=== PATIENT | male | born 1955 | race Caucasian/White ===

== ENCOUNTER 2020-11-12 17:47 | Observation (INO) | payer MEDICARE, BC ==
[2020-11-12] MEDS ORDERED: Zofran 4 MG/2 ML VIAL IV ONE (18:11)
[2020-11-12] MEDS ORDERED: Sodium Chloride 0.9% 1000 ML 1,000 ML IV STA (18:11)
[2020-11-12] MEDS ORDERED: MORPHINE SULFATE 4 MG INJ IV ONE (18:11)
--- NOTE | 2020-11-12 18:17 | ERPHSYRPT ---
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 rates 8/10 pain now that increases with deep breaths. noted bruising where pain located and is tender to palp. denies SOB, diff breathing, or CP. Timing/Duration: hour(s) (0.5), constant, sudden Activities at Onset: other Quality: sharpness Abdominal Pain Onset Location: LUQ Pain Radiation: other Severity of Pain-Max: moderate Severity of Pain-Current: moderate Modifying Factors: Improves With: rest. Worsens With: breathing, coughing, movement, palpation, position Associated Symptoms: denies symptoms Hx Tetanus, Diphtheria Vaccination/Date Given: Yes Hx Influenza Vaccination/Date Given: Yes Hx Pneumococcal Vaccination/Date Given: Yes Immunizations Up to Date: Yes <BRISSA SENA - Last Filed: 11/12/20 18:13> <LIO MAZARIEGOS - Last Filed: 11/12/20 21:47> - History of Present Illness Time Seen by Provider: 11/12/20 17:48 Physician History: 65Years old with a history of Parkinson's disease presented in the ER with chief complaint of fall with hitting stump of for tree left upper abdomen/lower chest almost half an hour prior to arrival. Did not hit his head, no loss of consciousness. He is complaining of moderate to severe sharp pain in the lower chest/upper abdomen, aggravated with palpation movements, deep breathing and partial relief with being still. Denies any associated nausea vomiting or difficulty breathing. No injury anywhere else. (BRISSA SENA) Allergies/Adverse Reactions: codeine Allergy (Verified 11/12/20 18:04) Nausea and Vomiting ropinirole [From Requip] Allergy (Verified 11/12/20 18:04) Nausea and Vomiting Home Medications: Amantadine HCl [Gocovri] 2 cap PO HS 11/12/20 [History] Bromocriptine Mesylate [Parlodel] 4 tab PO TID 11/12/20 [History] Carbidopa/Levodopa [Carbidopa-Levo 25-100 Tab] 2 tab PO QID 11/12/20 [History] Cholecalciferol (Vitamin D3) [Vitamin D3] 5,000 unit PO DAILY 11/12/20 [History] Diazepam 5 mg [Valium 5 MG] 2 tab PO HS 11/12/20 [History] Docusate Sodium [Stool Softener] 50 mg PO BID 11/12/20 [History] Ginkgo Biloba 60 mg PO BID 11/12/20 [History] Istradefylline [Nourianz] 20 mg PO DAILY 11/12/20 [History] [place]-3S/Dha/Epa/Fish Oil/D3 [Fish Oil Gummies] 1 each PO HS 11/12/20 [History] Omeprazole 40 mg PO DAILY 11/12/20 [History] Rasagiline Mesylate 0.5 mg PO DAILY 11/12/20 [History] [place] Fruit/Zinc Picoli [Saw [place] Capsule] 1 each PO BID 11/12/20 [History] Tyrosine [l-Tyrosine] 500 mg PO DAILY 11/12/20 [History] Travel Risk - International Travel Have you traveled outside of the country in past 3 weeks: No - Coronavirus Screening Are you exhibiting any of the following symptoms?: No Close contact with a COVID-19 positive Pt in past 14-21 Days: No - Vaccine Status Have you recieved a Covid-19 vaccination: Yes Continuity Director: Moderna - Vaccination Dates Date of 2cond Vaccination (if applicable): unknown <BRISSA SENA - Last Filed: 11/12/20 18:13> - Review of Systems Constitutional: No Symptoms Eyes: No Symptoms Ears, Nose, & Throat: No Symptoms Respiratory: No Symptoms Cardiac: Chest Pain Abdominal/Gastrointestinal: Abdominal Pain Genitourinary Symptoms: No Symptoms Musculoskeletal: No Symptoms Skin: No Symptoms Neurological: No Symptoms Psychological: No Symptoms Endocrine: No Symptoms Hematologic/Lymphatic: No Symptoms Immunological/Allergic: No Symptoms <BRISSA SENA - Last Filed: 11/12/20 18:13> - Past Medical History Pertinent Past Medical History: Yes Neurological History: Other Respiratory History: Asthma, Pneumonia GI Medical History: GERD Male Reproductive Disorders: Prostate Problems Other Medical History: Parkinsons, R foot drop, skin cacncers removed, bone spurs in neck - Past Surgical History Past Surgical History: Yes Musculoskeletal: Orthopedic Surgery Male Surgical History: Prostate Surgery, Other Other Surgical History: 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, urolift (7 ami remain) - Social History Smoking Status: Never smoker Exposure to second hand smoke: No Drug Use: none Patient Lives Alone: No <DUNIA SENAMIR - Last Filed: 11/12/20 18:13> - Physical Exam General Appearance: no apparent distress, alert Eye Exam: PERRL/EOMI, eyes nml inspection Ears, Nose, Throat Exam: normal ENT inspection, TMs normal, pharynx normal Neck Exam: normal inspection, non-tender, supple, full range of motion Respiratory Exam: normal breath sounds, chest tenderness (Lower anterior chest wall bruising with tenderness), lungs clear Cardiovascular Exam: regular rate/rhythm, normal heart sounds Gastrointestinal/Abdomen Exam: soft, normal bowel sounds, tenderness (Left upper quadrant), guarding Back Exam: normal inspection, normal range of motion, No CVA tenderness Extremity Exam: normal inspection, normal range of motion Neurologic Exam: alert, oriented x 3, cooperative, 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 No acute traumatic injury. 2. Enlargement of the prostate with radiopaque seeds in the prostate. Mild prominence of the seminal vesicles. 3. 8 x 12 mm proximal right iliac lymph node.) <LIO MAZARIEGOS - Last Filed: 11/12/20 21:47> Ordered Tests: Active Orders 24 hr Category Date Time Status IV Insertion STAT Care 11/12/20 18:11 Active NPO (ED) STAT Care 11/12/20 18:11 Active ABDOMEN AND PELVIS W CONTRAST [CT] Stat Exams 11/12/20 18:12 Taken CHEST WITH CONTRAST [CT] Stat Exams 11/12/20 18:13 Taken CBC W DIFF Stat Lab 11/12/20 18:10 Completed CMP Stat Lab 11/12/20 18:10 Completed LIPASE Stat Lab 11/12/20 18:10 Completed TROPONIN Q3H Lab 11/12/20 18:10 Completed TROPONIN Q3H Lab 11/12/20 21:33 Received TROPONIN Q3H Lab 11/13/20 00:15 Ordered TROPONIN Q3H Lab 11/13/20 03:15 Ordered TROPONIN Q3H Lab 11/13/20 06:15 Ordered UA W/RFX UR CULTURE Stat Lab 11/12/20 19:57 Completed Medication Summary Discontinued Medications Generic Name Dose Route Start Last Admin Trade Name Freq PRN Reason Stop Dose Admin Sodium Chloride 1,000 mls @ 999 mls/hr 11/12/20 18:11 11/12/20 19:27 Sodium Chloride 0.9% 1000 Ml IV 11/12/20 19:11 Infused .Q1H1M STA Infusion Sodium Chloride Confirm 11/12/20 18:24 Sodium Chloride 0.9% 1000 Ml Administered 11/12/20 18:25 Dose 1,000 mls @ ud .ROUTE .STK-MED ONE Ketorolac Tromethamine 15 mg 11/12/20 20:49 11/12/20 21:09 Toradol 30 Mg Injection IV 11/12/20 20:50 15 mg STAT ONE Administration Ketorolac Tromethamine Confirm 11/12/20 21:08 Toradol 30 Mg Injection Administered 11/12/20 21:09 Dose 30 mg .ROUTE .STK-MED ONE Morphine Sulfate 4 mg 11/12/20 18:11 11/12/20 18:26 Morphine Sulfate 4 Mg Inj IV 11/12/20 18:12 4 mg STAT ONE Administration Morphine Sulfate Confirm 11/12/20 18:24 Morphine Sulfate 4 Mg Inj Administered 11/12/20 18:25 Dose 4 mg .ROUTE .STK-MED ONE Ondansetron HCl 4 mg 11/12/20 18:11 11/12/20 18:26 Zofran 4 Mg/2 Ml Vial IV 11/12/20 18:12 4 mg STAT ONE Administration Ondansetron HCl Confirm 11/12/20 18:23 Zofran 4 Mg/2 Ml Vial Administered 11/12/20 18:24 Dose 4 mg .ROUTE .STK-MED ONE Lab/Rad Data: Laboratory Result Diagrams 11/12/20 18:10 11/12/20 18:10 Laboratory Results 11/12/20 11/12/20 11/12/20 Range/Units 19:57 18:10 18:10 WBC (4.0-10.5) K/mm3 RBC (4.1-5.6) M/mm3 Hgb (12.5-18.0) gm/dl Hct (42-50) % MCV (78-100) fl MCH (26-32) pg MCHC (32-36) g/dl RDW (11.5-14.0) % Plt Count (150-450) K/mm3 MPV (7.5-11.0) fl Gran % (36.0-66.0) % Eos # (Auto) (0-0.5) Absolute Lymphs (auto) (1.0-4.6) Absolute Monos (auto) (0.0-1.3) Lymphocytes % (24.0-44.0) % Monocytes % (0.0-12.0) % Eosinophils % (0.00-5.0) % Basophils % (0.0-0.4) % Absolute Granulocytes (1.4-6.9) Basophils # (0-0.4) Sodium 139 (137-145) mmol/L Potassium 3.9 (3.5-5.1) mmol/L Chloride 104 (98-107) mmol/L Carbon Dioxide 31 H (22-30) mmol/L Anion Gap 8.3 (5-15) MEQ/L BUN 17 (9-20) mg/dL Creatinine 0.94 (0.66-1.25) mg/dL Estimated GFR > 60.0 ML/MIN Glucose 87 (74-106) mg/dL Calcium 9.1 (8.4-10.2) mg/dL Total Bilirubin 0.70 (0.2-1.3) mg/dL AST 26 (17-59) U/L ALT 7 (0-50) U/L Alkaline Phosphatase 83 (38-126) U/L Troponin I < 0.012 (0.000-0.034) ng/mL Serum Total Protein 6.5 (6.3-8.2) g/dL Albumin 4.2 (3.5-5.0) g/dL Lipase 100 (23-300) U/L Urine Color YELLOW (YELLOW) Urine Appearance CLEAR (CLEAR) Urine pH 6.0 (5-6) Ur Specific [place] >1.060 (1.005-1.025) Urine Protein NEGATIVE (Negative) Urine Ketones SMALL (NEGATIVE) Urine Blood NEGATIVE (0-5) Randy/ul Urine Nitrite NEGATIVE (NEGATIVE) Urine Bilirubin NEGATIVE (NEGATIVE) Urine Urobilinogen NEGATIVE (0-1) mg/dL Ur Leukocyte Esterase NEGATIVE (NEGATIVE) Urine WBC (Auto) 3-5 (0-5) /HPF Urine RBC (Auto) NONE (0-2) /HPF U Epithel Cells (Auto) NONE (FEW) /HPF Urine Bacteria (Auto) NONE (NEGATIVE) /HPF Urine Mucus (Auto) SLIGHT (NEGATIVE) /HPF Urine Culture Reflexed NO (NO) Urine Glucose NEGATIVE (NEGATIVE) mg/dL 11/12/20 Range/Units 18:10 WBC 7.9 (4.0-10.5) K/mm3 RBC 4.80 (4.1-5.6) M/mm3 Hgb 14.2 (12.5-18.0) gm/dl Hct 44.1 (42-50) % MCV 91.9 (78-100) fl MCH 29.6 (26-32) pg MCHC 32.2 (32-36) g/dl RDW 13.6 (11.5-14.0) % Plt Count 259 (150-450) K/mm3 MPV 9.2 (7.5-11.0) fl Gran % 67.6 H (36.0-66.0) % Eos # (Auto) 0.12 (0-0.5) Absolute Lymphs (auto) 1.89 (1.0-4.6) Absolute Monos (auto) 0.52 (0.0-1.3) Lymphocytes % 24.0 (24.0-44.0) % Monocytes % 6.6 (0.0-12.0) % Eosinophils % 1.5 (0.00-5.0) % Basophils % 0.3 (0.0-0.4) % Absolute Granulocytes 5.32 (1.4-6.9) Basophils # 0.02 (0-0.4) Sodium (137-145) mmol/L Potassium (3.5-5.1) mmol/L Chloride (98-107) mmol/L Carbon Dioxide (22-30) mmol/L Anion Gap (5-15) MEQ/L BUN (9-20) mg/dL Creatinine (0.66-1.25) mg/dL Estimated GFR ML/MIN Glucose (74-106) mg/dL Calcium (8.4-10.2) mg/dL Total Bilirubin (0.2-1.3) mg/dL AST (17-59) U/L ALT (0-50) U/L Alkaline Phosphatase (38-126) U/L Troponin I (0.000-0.034) ng/mL Serum Total Protein (6.3-8.2) g/dL Albumin (3.5-5.0) g/dL Lipase (23-300) U/L Urine Color (YELLOW) Urine Appearance (CLEAR) Urine pH (5-6) Ur Specific [place] (1.005-1.025) Urine Protein (Negative) Urine Ketones (NEGATIVE) Urine Blood (0-5) Randy/ul Urine Nitrite (NEGATIVE) Urine Bilirubin (NEGATIVE) Urine Urobilinogen (0-1) mg/dL Ur Leukocyte Esterase (NEGATIVE) Urine WBC (Auto) (0-5) /HPF Urine RBC (Auto) (0-2) /HPF U Epithel Cells (Auto) (FEW) /HPF Urine Bacteria (Auto) (NEGATIVE) /HPF Urine Mucus (Auto) (NEGATIVE) /HPF Urine Culture Reflexed (NO) Urine Glucose (NEGATIVE) mg/dL <BRISSA SENA - Last Filed: 11/12/20 18:13> - Progress Progress: unchanged Discussed with : Mallika (observation(2139)) Counseled pt/family regarding: lab results, rad results <LIO MAZARIEGOS - Last Filed: 11/12/20 21:47> - Progress Progress Note: 11/12/20 18:56 He is given pain medication for symptomatic relief. CT chest abdomen pelvis would be obtained. Care is transferred to Dr. Mazariegos at shift change for reevaluation and management per CT results. (BRISSA SENA) Pt examined by Dr. Mazariegos @ 2034: pharynx pink, lungs clear, mild tenderness over the lower left anteriolateral ribs with some bruising, mild LUQ abdominal tenderness, B.S. normal, alert & cooperative. (LIO MAZARIEGOS) <BRISSA SENA - Last Filed: 11/12/20 18:13> - Departure Departure Disposition: Observation Critical Care Time: No <LIO MAZARIEGOS - Last Filed: 11/12/20 21:47> - Departure Clinical Impression: chest pain, Fall, Parkinson disease, abdominal pain, GERD (gastroesophageal reflux disease) Condition: Stable Referrals: ELIAZAR TRACEY DO [Primary Care Provider] -
[2020-11-12] MEDS ORDERED: Zofran 4 MG/2 ML VIAL ONE (18:23)
[2020-11-12] MEDS ORDERED: Sodium Chloride 0.9% 1000 ML 1,000 ML ONE (18:24)
[2020-11-12] MEDS ORDERED: MORPHINE SULFATE 4 MG INJ ONE (18:24)
[2020-11-12 18:34] LABS: Absolute Neutrophil Ct (ANC) 5.32 (1.4-6.9); BASOPHIL % 0.3 % (0.0-0.4); Basophil (Absolute #) 0.02 (0-0.4); Eosinophil % 1.5 % (0.00-5.0); Eosinophil (Absolute #) 0.12 (0-0.5); Hematocrit 44.1 % (42-50); Hemoglobin 14.2 gm/dl (12.5-18.0); Lymphocyte (Absolute #) 1.89 (1.0-4.6); Mean Cell Volume 91.9 fl (78-100); Mean Corpuscular Hemoglobin 29.6 pg (26-32); Mean Corpuscular Hgb Concent. 32.2 g/dl (32-36); Mean Platelet Volume 9.2 fl (7.5-11.0); Monocyte (Absolute #) 0.52 (0.0-1.3); Monocytes % 6.6 % (0.0-12.0); Neutrophil % 67.6 % (36.0-66.0); Platelet Count 259 K/mm3 (150-450); Red Cell Distribution Width 13.6 % (11.5-14.0); White Blood Count 7.9 K/mm3 (4.0-10.5)
[2020-11-12 18:48] LABS: ALBUMIN 4.2 g/dL (3.5-5.0); ALKALINE PHOSPHATASE 83 U/L (38-126); ANION GAP 8.3 MEQ/L (5-15); BLOOD UREA NITROGEN 17 mg/dL (9-20); CHLORIDE 104 mmol/L (98-107); Calcium 9.1 mg/dL (8.4-10.2); Carbon Dioxide 31 mmol/L (22-30); Creatinine 1 0.94 mg/dL (0.66-1.25); EST GLOMERULAR FILTRATION RATE > 60.0 ML/MIN; Glucose 87 mg/dL (74-106); LIPASE 100 U/L (23-300); Potassium 3.9 mmol/L (3.5-5.1); SGOT/AST 26 U/L (17-59); SGPT/ALT 7 U/L (0-50); SODIUM 139 mmol/L (137-145); Total Protein 6.5 g/dL (6.3-8.2)
[2020-11-12 20:19] LABS: Appearance CLEAR (CLEAR); Bilirubin NEGATIVE (NEGATIVE); Blood NEGATIVE Ery/ul (0-5); Glucose NEGATIVE (NEGATIVE); Ketones SMALL (NEGATIVE); Leukocyte Esterase NEGATIVE (NEGATIVE); Mucus SLIGHT /HPF (NEGATIVE); Nitrite NEGATIVE (NEGATIVE); Protein,Urine Dip NEGATIVE (Negative); Specific Gravity >1.060 (1.005-1.025); Urobilinogen NEGATIVE mg/dL (0-1)
[2020-11-12] MEDS ORDERED: TORAdol 30 mg Injection IV ONE (20:49)
[2020-11-12] MEDS ORDERED: TORAdol 30 mg Injection ONE (21:08)
[2020-11-12] MEDS ORDERED: Zofran 4 MG/2 ML VIAL IV PRN (21:47)
[2020-11-12] MEDS ORDERED: TYLENOL 325 MG PO PRN (21:47)
[2020-11-12] MEDS: Sodium Chloride 0.9% 1000 ML 1,000 ML IV SCH (22:20)
[2020-11-12 22:55] LABS: INFLUENZA A NEGATIVE (NEGATIVE); INFLUENZA B NEGATIVE (NEGATIVE); RESPIRATORY SYNCTIAL VIRUS NEGATIVE (Negative)
[2020-11-13] MEDS: TORAdol 30 mg Injection IV PRN ×3 (03:29→15:11)
[2020-11-13 07:37] LABS: Absolute Neutrophil Ct (ANC) 5.01 (1.4-6.9); BASOPHIL % 0.1 % (0.0-0.4); Basophil (Absolute #) 0.01 (0-0.4); Eosinophil % 1.7 % (0.00-5.0); Eosinophil (Absolute #) 0.13 (0-0.5); Hematocrit 42.7 % (42-50); Hemoglobin 13.4 gm/dl (12.5-18.0); Lymphocyte (Absolute #) 2.13 (1.0-4.6); Lymphocytes % 27.3 % (24.0-44.0); Mean Corpuscular Hemoglobin 29.2 pg (26-32); Mean Corpuscular Hgb Concent. 31.4 g/dl (32-36); Mean Platelet Volume 9.3 fl (7.5-11.0); Monocyte (Absolute #) 0.53 (0.0-1.3); Monocytes % 6.8 % (0.0-12.0); Neutrophil % 64.1 % (36.0-66.0); Platelet Count 231 K/mm3 (150-450); Red Blood Count 4.59 M/mm3 (4.1-5.6); Red Cell Distribution Width 13.7 % (11.5-14.0); White Blood Count 7.8 K/mm3 (4.0-10.5)
[2020-11-13 07:38] VITALS: O2SAT 98
[2020-11-13 07:50] LABS: ALBUMIN 3.5 g/dL (3.5-5.0); ALKALINE PHOSPHATASE 79 U/L (38-126); ANION GAP 6.8 MEQ/L (5-15); BLOOD UREA NITROGEN 12 mg/dL (9-20); CHLORIDE 107 mmol/L (98-107); Calcium 8.4 mg/dL (8.4-10.2); Carbon Dioxide 29 mmol/L (22-30); Creatinine 1 0.87 mg/dL (0.66-1.25); EST GLOMERULAR FILTRATION RATE > 60.0 ML/MIN; Glucose 88 mg/dL (74-106); Potassium 3.9 mmol/L (3.5-5.1); SGOT/AST 22 U/L (17-59); SODIUM 139 mmol/L (137-145); Total Protein 5.7 g/dL (6.3-8.2)
[2020-11-13 07:54] LABS: SGPT/ALT 5 U/L (0-50)
[2020-11-13] MEDS: Sodium Chloride 0.9% 1000 ML 1,000 ML IV SCH (08:27)
--- NOTE | 2020-11-13 08:44 | XRAY ---
Indication: Left chest pain following fall. Multiple contiguous axial images obtained through the chest using 100 cc Isovue 370 contrast. Comparison: None Lungs demonstrates minimal bilateral dependent atelectasis. No suspicious pulmonary mass, infiltrate, effusion, or pneumothorax. Heart is not enlarged. Aorta normal in course and caliber. A few tiny left hilar calcified nodes. No pathologic mediastinal/hilar lymphadenopathy. Bony thorax intact with minimal degenerative changes throughout the spine and tiny multilevel Schmorl nodes. CT abdomen/pelvis reported separately. Impression: Chronic bony findings and old granulomatous disease. Remaining CT chest with contrast exam is negative. Comment: Preliminary interpretation was made by [facility]. No critical discrepancy.
--- NOTE | 2020-11-13 08:46 | XRAY ---
Indication: Left chest/abdomen pain following fall. Multiple contiguous axial images obtained through the abdomen and pelvis using 100 cc Isovue 370 contrast. Comparison: None CT chest reported separately. Noncontrasted stomach and bowel loops appear nonobstructed. Enlarged prostate with multiple radiation seeds. No free fluid/air. Incidental 1 cm right renal cyst and splenic calcified granulomas. Remaining liver, gallbladder, pancreas, spleen, adrenal glands, kidneys, ureters, bladder, and aorta are unremarkable. No pathologic retroperitoneal lymphadenopathy. Osseous structures intact with mild degenerative changes throughout the spine greatest at the lumbosacral junction. Impression: Impression: 1. Right renal cyst, enlarged prostate gland with radiation seeds, chronic bony findings, and old granulomatous disease. 2. Remaining CT abdomen/pelvis with contrast exam is negative. Comment: Preliminary interpretation was made by [facility]. No critical discrepancy.
[2020-11-13] MEDS ORDERED: MEDICATION INTERVENTION PO SCH ×4 (09:30)
[2020-11-13] MEDS: Sinemet 25/100 MG PO SCH ×2 (09:47→12:35)
[2020-11-13] MEDS ORDERED: BROMOCRIPTINE MESYLATE 10 MG PO SCH (10:00)
[2020-11-13] MEDS ORDERED: RASAGILINE MESYLATE 0.5 MG PO SCH (10:00)
[2020-11-13] MEDS ORDERED: NON-FORMULARY ITEM (Docusate Sodium [Stool Softener] 100 MG) PO SCH (10:00)
[2020-11-13] MEDS ORDERED: Colace 100 MG PO SCH (10:00)
[2020-11-13] MEDS ORDERED: NON-FORMULARY ITEM (Omeprazole [Omeprazole] 40 MG) PO SCH (10:00)
[2020-11-13] MEDS ORDERED: Protonix 40MG Tablet PO SCH (10:00)
[2020-11-13] MEDS ORDERED: ISTRADEFYLLINE 20 MG PO SCH (10:00)
[2020-11-13 12:27] VITALS: BP 130/62
--- NOTE | 2020-11-13 16:39 | PCM.DCORD ---
- Discharge Disposition: Home, Self-Care Condition: Stable Prescriptions: New Ketorolac Tromethamine [Toradol] 10 mg PO TID PRN #12 tablet Continue Cholecalciferol (Vitamin D3) [Vitamin D3] 5,000 unit PO DAILY Tyrosine [l-Tyrosine] 500 mg PO DAILY [place] Fruit/Zinc [place] [[place] 450 mg Capsule] 150 mg PO BID Ginkgo Biloba 60 mg PO BID Docusate Sodium [Stool Softener] 100 mg PO BID Diazepam 5 mg [Valium 5 MG] 10 mg PO HS Rasagiline Mesylate 0.5 mg PO DAILY Omeprazole 40 mg PO DAILY Amantadine HCl [Gocovri] 274 mg PO HS Bromocriptine Mesylate [Parlodel] 10 mg PO TID Istradefylline [Nourianz] 20 mg PO DAILY Carbidopa/Levodopa [Carbidopa-Levo 25-100 Tab] 2 tab PO QID [place]-3S/Dha/Epa/Fish Oil/D3 [Fish Oil Gummies] 1 each PO DAILY L.acidoph,Paracasei, B.lactis [Probiotic] 1 each PO DAILY Ubidecarenone [Co Q-10] 200 mg PO DAILY Turmeric 200 mg PO DAILY Cartilage/Collagen/Bor/Hyalur [Joint Health Tablet] 1 each PO DAILY Glucosamine Sulfate 1,000 mg PO DAILY Additional Instructions: outpatient PT Follow up with: ELIAZAR TRACEY DO [Primary Care Provider] -
[2020-11-13 16:42] VITALS: PULSE 56
--- NOTE | 2020-11-13 16:45 | PCM.SSS ---
History of Present Illness - Chief Complaint Chief Complaint: CHEST PAIN, ABDOMINAL PAIN, FALL, GERD, PARKINSON'S DISEASE History of Present Illness: is a 65 year old male with Parkinson's dz who was injured at home. [place] , grabbed [place] branch that broke and he fell onto a 10 inch log landing on his left upper abdomen and lower chest. He was in severe pain in this area and presented to ER. CT abd/pelvis and chest did not show any acute changes.He was admitted for observation and pain control. - Review of Systems Constitutional: No Symptoms Eyes: No Symptoms Ears, Nose, & Throat: No Symptoms Respiratory: No Symptoms Cardiac: No Symptoms Abdominal/Gastrointestinal: Abdominal Pain (LUQ), Other (GERD controlled on meds) Genitourinary Symptoms: Hesitancy Musculoskeletal: Fall, Injury (see HPI), Other (Parkinsons chronic episodic uncontrolled jerking of extremities) Neurological: Other (no headaches or focal neuro changes. ) Psychological: No Symptoms Endocrine: No Symptoms Medications & Allergies Home Medications: Home Medication List Amantadine HCl [Gocovri] 274 mg PO HS 11/12/20 [History Confirmed 11/13/20] Bromocriptine Mesylate [Parlodel] 10 mg PO TID 11/12/20 [History Confirmed 11/13/20] Carbidopa/Levodopa [Carbidopa-Levo 25-100 Tab] 2 tab PO QID 11/12/20 [History Confirmed 11/12/20] Cholecalciferol (Vitamin D3) [Vitamin D3] 5,000 unit PO DAILY 11/12/20 [History Confirmed 11/12/20] Diazepam 5 mg [Valium 5 MG] 10 mg PO HS 11/12/20 [History Confirmed 11/13/20] Docusate Sodium [Stool Softener] 100 mg PO BID 11/12/20 [History Confirmed 11/13/20] Ginkgo Biloba 60 mg PO BID 11/12/20 [History Confirmed 11/12/20] Istradefylline [Nourianz] 20 mg PO DAILY 11/12/20 [History Confirmed 11/12/20] [place]-3S/Dha/Epa/Fish Oil/D3 [Fish Oil Gummies] 1 each PO DAILY 11/12/20 [History Confirmed 11/13/20] Omeprazole 40 mg PO DAILY 11/12/20 [History Confirmed 11/12/20] Rasagiline Mesylate 0.5 mg PO DAILY 11/12/20 [History Confirmed 11/12/20] [place] Fruit/Zinc Picoli [Saw [place] 450 mg Capsule] 150 mg PO BID 11/12/20 [History Confirmed 11/13/20] Tyrosine [l-Tyrosine] 500 mg PO DAILY 11/12/20 [History Confirmed 11/12/20] Cartilage/Collagen/Bor/Hyalur [Joint Health Tablet] 1 each PO DAILY 11/13/20 [History Confirmed 11/13/20] Glucosamine Sulfate 1,000 mg PO DAILY 11/13/20 [History Confirmed 11/13/20] Ketorolac Tromethamine [Toradol] 10 mg PO TID PRN #12 tablet 11/13/20 [Rx] L.acidoph,Paracasei, B.lactis [Probiotic] 1 each PO DAILY 11/13/20 [History Confirmed 11/13/20] Turmeric 200 mg PO DAILY 11/13/20 [History Confirmed 11/13/20] Ubidecarenone [Co Q-10] 200 mg PO DAILY 11/13/20 [History Confirmed 11/13/20] Allergies/Adverse Reactions: Allergies Allergy/AdvReac Type Severity Reaction Status Date / Time codeine Allergy Nausea and Verified 11/13/20 00:27 Vomiting ropinirole [From Requip] Allergy Nausea and Verified 11/13/20 00:27 Vomiting - Past Medical History Past Medical History: Yes Neurological History: Other ENT History: No Pertinent History Cardiac History: No Pertinent History Respiratory History: Asthma, Pneumonia Endocrine Medical History: No Pertinent History Musculoskelatal History: No Pertinent History GI Medical History: GERD History: No Pertinent History Pyscho-Social History: No Pertinent History Male Reproductive Disorders: Prostate Problems Comment: Parkinsons, R foot drop, skin caNCcers removed, bone spurs in neck - Past Surgical History Past Surgical History: Yes Neuro Surgical History: No Pertinent History Cardiac History: No Pertinent History Respiratory Surgery: No Pertinent History GI Surgical History: No Pertinent History Genitourinary Surgical Hx: No Pertinent History Musculskeletal Surgical Hx: Orthopedic Surgery Male Surgical History: Prostate Surgery, Other Other Surgical History: 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, urolift (7 ami remain) - Social History Smoking Status: Never smoker Exposure to second hand smoke: No Alcohol: Occasionally Drug Use: none - Physical Exam Vital Signs: Vital Signs - 24 hr Temp Pulse Resp BP Pulse Ox 11/13/20 12:00 98.4 F 58 L 18 130/62 98 11/13/20 07:37 97.9 F 55 L 20 127/66 98 11/13/20 07:20 95 11/13/20 03:53 98.1 F 63 16 121/70 96 11/13/20 00:25 95 11/12/20 23:49 97.8 F 63 16 158/77 97 11/12/20 23:30 97.8 F 63 16 158/77 97 11/12/20 23:09 68 16 130/71 98 11/12/20 22:24 68 18 129/71 96 11/12/20 21:14 70 16 138/73 98 11/12/20 20:00 68 18 151/81 98 11/12/20 19:00 60 18 145/75 97 11/12/20 18:17 100 11/12/20 17:55 97.5 F 62 18 161/90 100 General Appearance: no apparent distress (seated ,just had Toradol IV) Neurologic Exam: alert, oriented x 3, cooperative, normal mood/affect, abnormal gait (parkinsons) Eye Exam: eyes nml inspection Ears, Nose, Throat Exam: normal ENT inspection, moist mucous membranes Neck Exam: normal inspection Respiratory Exam: normal breath sounds Cardiovascular Exam: regular rate/rhythm Gastrointestinal/Abdomen Exam: soft, normal bowel sounds, tenderness (LUQ) Rectal Exam: not done Back Exam: normal inspection (no CVA tenderness) Extremity Exam: normal inspection Skin Exam: normal color, warm, dry Results - Labs Lab/Micro Results: Lab Results-Last 24 Hours 11/12/20 11/12/20 11/12/20 Range/Units 18:10 18:10 18:10 WBC 7.9 (4.0-10.5) K/mm3 RBC 4.80 (4.1-5.6) M/mm3 Hgb 14.2 (12.5-18.0) gm/dl Hct 44.1 (42-50) % MCV 91.9 (78-100) fl MCH 29.6 (26-32) pg MCHC 32.2 (32-36) g/dl RDW 13.6 (11.5-14.0) % Plt Count 259 (150-450) K/mm3 MPV 9.2 (7.5-11.0) fl Gran % 67.6 H (36.0-66.0) % Eos # (Auto) 0.12 (0-0.5) Absolute Lymphs (auto) 1.89 (1.0-4.6) Absolute Monos (auto) 0.52 (0.0-1.3) Lymphocytes % 24.0 (24.0-44.0) % Monocytes % 6.6 (0.0-12.0) % Eosinophils % 1.5 (0.00-5.0) % Basophils % 0.3 (0.0-0.4) % Absolute Granulocytes 5.32 (1.4-6.9) Basophils # 0.02 (0-0.4) Sodium 139 (137-145) mmol/L Potassium 3.9 (3.5-5.1) mmol/L Chloride 104 (98-107) mmol/L Carbon Dioxide 31 H (22-30) mmol/L Anion Gap 8.3 (5-15) MEQ/L BUN 17 (9-20) mg/dL Creatinine 0.94 (0.66-1.25) mg/dL Estimated GFR > 60.0 ML/MIN Glucose 87 (74-106) mg/dL Calcium 9.1 (8.4-10.2) mg/dL Total Bilirubin 0.70 (0.2-1.3) mg/dL AST 26 (17-59) U/L ALT 7 (0-50) U/L Alkaline Phosphatase 83 (38-126) U/L Troponin I < 0.012 (0.000-0.034) ng/mL Serum Total Protein 6.5 (6.3-8.2) g/dL Albumin 4.2 (3.5-5.0) g/dL Lipase 100 (23-300) U/L Urine Color (YELLOW) Urine Appearance (CLEAR) Urine pH (5-6) Ur Specific Mico (1.005-1.025) Urine Protein (Negative) Urine Ketones (NEGATIVE) Urine Blood (0-5) Randy/ul Urine Nitrite (NEGATIVE) Urine Bilirubin (NEGATIVE) Urine Urobilinogen (0-1) mg/dL Ur Leukocyte Esterase (NEGATIVE) Urine WBC (Auto) (0-5) /HPF Urine RBC (Auto) (0-2) /HPF U Epithel Cells (Auto) (FEW) /HPF Urine Bacteria (Auto) (NEGATIVE) /HPF Urine Mucus (Auto) (NEGATIVE) /HPF Urine Culture Reflexed (NO) Urine Glucose (NEGATIVE) mg/dL Influenza Type A Ag (NEGATIVE) Influenza Type B Ag (NEGATIVE) RSV (PCR) (Negative) SARS-CoV-2 (PCR) (NEGATIVE) 11/12/20 11/12/20 11/12/20 Range/Units 19:57 21:33 22:02 WBC (4.0-10.5) K/mm3 RBC (4.1-5.6) M/mm3 Hgb (12.5-18.0) gm/dl Hct (42-50) % MCV (78-100) fl MCH (26-32) pg MCHC (32-36) g/dl RDW (11.5-14.0) % Plt Count (150-450) K/mm3 MPV (7.5-11.0) fl Gran % (36.0-66.0) % Eos # (Auto) (0-0.5) Absolute Lymphs (auto) (1.0-4.6) Absolute Monos (auto) (0.0-1.3) Lymphocytes % (24.0-44.0) % Monocytes % (0.0-12.0) % Eosinophils % (0.00-5.0) % Basophils % (0.0-0.4) % Absolute Granulocytes (1.4-6.9) Basophils # (0-0.4) Sodium (137-145) mmol/L Potassium (3.5-5.1) mmol/L Chloride (98-107) mmol/L Carbon Dioxide (22-30) mmol/L Anion Gap (5-15) MEQ/L BUN (9-20) mg/dL Creatinine (0.66-1.25) mg/dL Estimated GFR ML/MIN Glucose (74-106) mg/dL Calcium (8.4-10.2) mg/dL Total Bilirubin (0.2-1.3) mg/dL AST (17-59) U/L ALT (0-50) U/L Alkaline Phosphatase (38-126) U/L Troponin I < 0.012 (0.000-0.034) ng/mL Serum Total Protein (6.3-8.2) g/dL Albumin (3.5-5.0) g/dL Lipase (23-300) U/L Urine Color YELLOW (YELLOW) Urine Appearance CLEAR (CLEAR) Urine pH 6.0 (5-6) Ur Specific Mico >1.060 (1.005-1.025) Urine Protein NEGATIVE (Negative) Urine Ketones SMALL (NEGATIVE) Urine Blood NEGATIVE (0-5) Randy/ul Urine Nitrite NEGATIVE (NEGATIVE) Urine Bilirubin NEGATIVE (NEGATIVE) Urine Urobilinogen NEGATIVE (0-1) mg/dL Ur Leukocyte Esterase NEGATIVE (NEGATIVE) Urine WBC (Auto) 3-5 (0-5) /HPF Urine RBC (Auto) NONE (0-2) /HPF U Epithel Cells (Auto) NONE (FEW) /HPF Urine Bacteria (Auto) NONE (NEGATIVE) /HPF Urine Mucus (Auto) SLIGHT (NEGATIVE) /HPF Urine Culture Reflexed NO (NO) Urine Glucose NEGATIVE (NEGATIVE) mg/dL Influenza Type A Ag NEGATIVE (NEGATIVE) Influenza Type B Ag NEGATIVE (NEGATIVE) RSV (PCR) NEGATIVE (Negative) SARS-CoV-2 (PCR) NEGATIVE (NEGATIVE) 11/13/20 11/13/20 11/13/20 Range/Units 00:25 03:25 06:52 WBC (4.0-10.5) K/mm3 RBC (4.1-5.6) M/mm3 Hgb (12.5-18.0) gm/dl Hct (42-50) % MCV (78-100) fl MCH (26-32) pg MCHC (32-36) g/dl RDW (11.5-14.0) % Plt Count (150-450) K/mm3 MPV (7.5-11.0) fl Gran % (36.0-66.0) % Eos # (Auto) (0-0.5) Absolute Lymphs (auto) (1.0-4.6) Absolute Monos (auto) (0.0-1.3) Lymphocytes % (24.0-44.0) % Monocytes % (0.0-12.0) % Eosinophils % (0.00-5.0) % Basophils % (0.0-0.4) % Absolute Granulocytes (1.4-6.9) Basophils # (0-0.4) Sodium (137-145) mmol/L Potassium (3.5-5.1) mmol/L Chloride (98-107) mmol/L Carbon Dioxide (22-30) mmol/L Anion Gap (5-15) MEQ/L BUN (9-20) mg/dL Creatinine (0.66-1.25) mg/dL Estimated GFR ML/MIN Glucose (74-106) mg/dL Calcium (8.4-10.2) mg/dL Total Bilirubin (0.2-1.3) mg/dL AST (17-59) U/L ALT (0-50) U/L Alkaline Phosphatase (38-126) U/L Troponin I < 0.012 < 0.012 < 0.012 (0.000-0.034) ng/mL Serum Total Protein (6.3-8.2) g/dL Albumin (3.5-5.0) g/dL Lipase (23-300) U/L Urine Color (YELLOW) Urine Appearance (CLEAR) Urine pH (5-6) Ur Specific [place] (1.005-1.025) Urine Protein (Negative) Urine Ketones (NEGATIVE) Urine Blood (0-5) Randy/ul Urine Nitrite (NEGATIVE) Urine Bilirubin (NEGATIVE) Urine Urobilinogen (0-1) mg/dL Ur Leukocyte Esterase (NEGATIVE) Urine WBC (Auto) (0-5) /HPF Urine RBC (Auto) (0-2) /HPF U Epithel Cells (Auto) (FEW) /HPF Urine Bacteria (Auto) (NEGATIVE) /HPF Urine Mucus (Auto) (NEGATIVE) /HPF Urine Culture Reflexed (NO) Urine Glucose (NEGATIVE) mg/dL Influenza Type A Ag (NEGATIVE) Influenza Type B Ag (NEGATIVE) RSV (PCR) (Negative) SARS-CoV-2 (PCR) (NEGATIVE) 11/13/20 11/13/20 Range/Units 06:52 06:52 WBC 7.8 (4.0-10.5) K/mm3 RBC 4.59 (4.1-5.6) M/mm3 Hgb 13.4 (12.5-18.0) gm/dl Hct 42.7 (42-50) % MCV 93.0 (78-100) fl MCH 29.2 (26-32) pg MCHC 31.4 L (32-36) g/dl RDW 13.7 (11.5-14.0) % Plt Count 231 (150-450) K/mm3 MPV 9.3 (7.5-11.0) fl Gran % 64.1 (36.0-66.0) % Eos # (Auto) 0.13 (0-0.5) Absolute Lymphs (auto) 2.13 (1.0-4.6) Absolute Monos (auto) 0.53 (0.0-1.3) Lymphocytes % 27.3 (24.0-44.0) % Monocytes % 6.8 (0.0-12.0) % Eosinophils % 1.7 (0.00-5.0) % Basophils % 0.1 (0.0-0.4) % Absolute Granulocytes 5.01 (1.4-6.9) Basophils # 0.01 (0-0.4) Sodium 139 (137-145) mmol/L Potassium 3.9 (3.5-5.1) mmol/L Chloride 107 (98-107) mmol/L Carbon Dioxide 29 (22-30) mmol/L Anion Gap 6.8 (5-15) MEQ/L BUN 12 (9-20) mg/dL Creatinine 0.87 (0.66-1.25) mg/dL Estimated GFR > 60.0 ML/MIN Glucose 88 (74-106) mg/dL Calcium 8.4 (8.4-10.2) mg/dL Total Bilirubin 0.80 (0.2-1.3) mg/dL AST 22 (17-59) U/L ALT 5 (0-50) U/L Alkaline Phosphatase 79 (38-126) U/L Troponin I (0.000-0.034) ng/mL Serum Total Protein 5.7 L (6.3-8.2) g/dL Albumin 3.5 (3.5-5.0) g/dL Lipase (23-300) U/L Urine Color (YELLOW) Urine Appearance (CLEAR) Urine pH (5-6) Ur Specific [place] (1.005-1.025) Urine Protein (Negative) Urine Ketones (NEGATIVE) Urine Blood (0-5) Randy/ul Urine Nitrite (NEGATIVE) Urine Bilirubin (NEGATIVE) Urine Urobilinogen (0-1) mg/dL Ur Leukocyte Esterase (NEGATIVE) Urine WBC (Auto) (0-5) /HPF Urine RBC (Auto) (0-2) /HPF U Epithel Cells (Auto) (FEW) /HPF Urine Bacteria (Auto) (NEGATIVE) /HPF Urine Mucus (Auto) (NEGATIVE) /HPF Urine Culture Reflexed (NO) Urine Glucose (NEGATIVE) mg/dL Influenza Type A Ag (NEGATIVE) Influenza Type B Ag (NEGATIVE) RSV (PCR) (Negative) SARS-CoV-2 (PCR) (NEGATIVE) - Radiology Impressions Radiology Exams & Impressions: Radiology Procedures Category Date Time Status ABDOMEN AND PELVIS W CONTRAST [CT] Stat Exams 11/12/20 18:12 Completed CHEST WITH CONTRAST [CT] Stat Exams 11/12/20 18:13 Completed - Other Procedures and Tests Respiratory Therapy 11/14/20 05:00 EKG DAILY 11/15/20 05:00 EKG DAILY 11/16/20 05:00 EKG DAILY Assessment/Plan (1) Fall Status: Acute Assessment & Plan: slipped on the mud landed on a log hitting left upper abd and left lower chest.No acute changes on CT abd/pelvis/chest Code(s): W19.XXXA - UNSPECIFIED FALL, INITIAL ENCOUNTER (2) Contusion Status: Acute Qualifiers: Contusion area: abdominal wall Assessment & Plan: LUQ left lower ant ribs. Pain controlled with Toradol Code(s): T14.8XXA - OTHER INJURY OF UNSPECIFIED BODY REGION, INITIAL ENCOUNTER (3) Parkinson disease Status: Chronic Assessment & Plan: Neurology follows,meds help but still has episodic jerking motions extremities. Code(s): G20 - PARKINSON'S DISEASE [facility] Summary - Vitals & Intake/Output Vital Signs: Vital Signs Temperature 98.4 F 11/13/20 12:00 Pulse Rate 58 L 11/13/20 12:00 Respiratory Rate 18 11/13/20 12:00 Blood Pressure 130/62 11/13/20 12:00 O2 Sat by Pulse Oximetry 98 11/13/20 12:00 Intake & Output: Intake & Output 11/11/20 11/12/20 11/13/20 11/14/20 11:59 11:59 11:59 11:59 Intake Total 822 240 Output Total 200 Balance 622 240 Weight 85.8 kg - Lab Result Diagrams: 11/13/20 06:52 11/13/20 06:52 Lab Results-Last 24 Hrs: Lab Results-Last 24 Hours 11/12/20 11/12/20 11/12/20 Range/Units 18:10 18:10 18:10 WBC 7.9 (4.0-10.5) K/mm3 RBC 4.80 (4.1-5.6) M/mm3 Hgb 14.2 (12.5-18.0) gm/dl Hct 44.1 (42-50) % MCV 91.9 (78-100) fl MCH 29.6 (26-32) pg MCHC 32.2 (32-36) g/dl RDW 13.6 (11.5-14.0) % Plt Count 259 (150-450) K/mm3 MPV 9.2 (7.5-11.0) fl Gran % 67.6 H (36.0-66.0) % Eos # (Auto) 0.12 (0-0.5) Absolute Lymphs (auto) 1.89 (1.0-4.6) Absolute Monos (auto) 0.52 (0.0-1.3) Lymphocytes % 24.0 (24.0-44.0) % Monocytes % 6.6 (0.0-12.0) % Eosinophils % 1.5 (0.00-5.0) % Basophils % 0.3 (0.0-0.4) % Absolute Granulocytes 5.32 (1.4-6.9) Basophils # 0.02 (0-0.4) Sodium 139 (137-145) mmol/L Potassium 3.9 (3.5-5.1) mmol/L Chloride 104 (98-107) mmol/L Carbon Dioxide 31 H (22-30) mmol/L Anion Gap 8.3 (5-15) MEQ/L BUN 17 (9-20) mg/dL Creatinine 0.94 (0.66-1.25) mg/dL Estimated GFR > 60.0 ML/MIN Glucose 87 (74-106) mg/dL Calcium 9.1 (8.4-10.2) mg/dL Total Bilirubin 0.70 (0.2-1.3) mg/dL AST 26 (17-59) U/L ALT 7 (0-50) U/L Alkaline Phosphatase 83 (38-126) U/L Troponin I < 0.012 (0.000-0.034) ng/mL Serum Total Protein 6.5 (6.3-8.2) g/dL Albumin 4.2 (3.5-5.0) g/dL Lipase 100 (23-300) U/L Urine Color (YELLOW) Urine Appearance (CLEAR) Urine pH (5-6) Ur Specific Mico (1.005-1.025) Urine Protein (Negative) Urine Ketones (NEGATIVE) Urine Blood (0-5) Randy/ul Urine Nitrite (NEGATIVE) Urine Bilirubin (NEGATIVE) Urine Urobilinogen (0-1) mg/dL Ur Leukocyte Esterase (NEGATIVE) Urine WBC (Auto) (0-5) /HPF Urine RBC (Auto) (0-2) /HPF U Epithel Cells (Auto) (FEW) /HPF Urine Bacteria (Auto) (NEGATIVE) /HPF Urine Mucus (Auto) (NEGATIVE) /HPF Urine Culture Reflexed (NO) Urine Glucose (NEGATIVE) mg/dL Influenza Type A Ag (NEGATIVE) Influenza Type B Ag (NEGATIVE) RSV (PCR) (Negative) SARS-CoV-2 (PCR) (NEGATIVE) 11/12/20 11/12/20 11/12/20 Range/Units 19:57 21:33 22:02 WBC (4.0-10.5) K/mm3 RBC (4.1-5.6) M/mm3 Hgb (12.5-18.0) gm/dl Hct (42-50) % MCV (78-100) fl MCH (26-32) pg MCHC (32-36) g/dl RDW (11.5-14.0) % Plt Count (150-450) K/mm3 MPV (7.5-11.0) fl Gran % (36.0-66.0) % Eos # (Auto) (0-0.5) Absolute Lymphs (auto) (1.0-4.6) Absolute Monos (auto) (0.0-1.3) Lymphocytes % (24.0-44.0) % Monocytes % (0.0-12.0) % Eosinophils % (0.00-5.0) % Basophils % (0.0-0.4) % Absolute Granulocytes (1.4-6.9) Basophils # (0-0.4) Sodium (137-145) mmol/L Potassium (3.5-5.1) mmol/L Chloride (98-107) mmol/L Carbon Dioxide (22-30) mmol/L Anion Gap (5-15) MEQ/L BUN (9-20) mg/dL Creatinine (0.66-1.25) mg/dL Estimated GFR ML/MIN Glucose (74-106) mg/dL Calcium (8.4-10.2) mg/dL Total Bilirubin (0.2-1.3) mg/dL AST (17-59) U/L ALT (0-50) U/L Alkaline Phosphatase (38-126) U/L Troponin I < 0.012 (0.000-0.034) ng/mL Serum Total Protein (6.3-8.2) g/dL Albumin (3.5-5.0) g/dL Lipase (23-300) U/L Urine Color YELLOW (YELLOW) Urine Appearance CLEAR (CLEAR) Urine pH 6.0 (5-6) Ur Specific Mico >1.060 (1.005-1.025) Urine Protein NEGATIVE (Negative) Urine Ketones SMALL (NEGATIVE) Urine Blood NEGATIVE (0-5) Randy/ul Urine Nitrite NEGATIVE (NEGATIVE) Urine Bilirubin NEGATIVE (NEGATIVE) Urine Urobilinogen NEGATIVE (0-1) mg/dL Ur Leukocyte Esterase NEGATIVE (NEGATIVE) Urine WBC (Auto) 3-5 (0-5) /HPF Urine RBC (Auto) NONE (0-2) /HPF U Epithel Cells (Auto) NONE (FEW) /HPF Urine Bacteria (Auto) NONE (NEGATIVE) /HPF Urine Mucus (Auto) SLIGHT (NEGATIVE) /HPF Urine Culture Reflexed NO (NO) Urine Glucose NEGATIVE (NEGATIVE) mg/dL Influenza Type A Ag NEGATIVE (NEGATIVE) Influenza Type B Ag NEGATIVE (NEGATIVE) RSV (PCR) NEGATIVE (Negative) SARS-CoV-2 (PCR) NEGATIVE (NEGATIVE) 11/13/20 11/13/20 11/13/20 Range/Units 00:25 03:25 06:52 WBC (4.0-10.5) K/mm3 RBC (4.1-5.6) M/mm3 Hgb (12.5-18.0) gm/dl Hct (42-50) % MCV (78-100) fl MCH (26-32) pg MCHC (32-36) g/dl RDW (11.5-14.0) % Plt Count (150-450) K/mm3 MPV (7.5-11.0) fl Gran % (36.0-66.0) % Eos # (Auto) (0-0.5) Absolute Lymphs (auto) (1.0-4.6) Absolute Monos (auto) (0.0-1.3) Lymphocytes % (24.0-44.0) % Monocytes % (0.0-12.0) % Eosinophils % (0.00-5.0) % Basophils % (0.0-0.4) % Absolute Granulocytes (1.4-6.9) Basophils # (0-0.4) Sodium (137-145) mmol/L Potassium (3.5-5.1) mmol/L Chloride (98-107) mmol/L Carbon Dioxide (22-30) mmol/L Anion Gap (5-15) MEQ/L BUN (9-20) mg/dL Creatinine (0.66-1.25) mg/dL Estimated GFR ML/MIN Glucose (74-106) mg/dL Calcium (8.4-10.2) mg/dL Total Bilirubin (0.2-1.3) mg/dL AST (17-59) U/L ALT (0-50) U/L Alkaline Phosphatase (38-126) U/L Troponin I < 0.012 < 0.012 < 0.012 (0.000-0.034) ng/mL Serum Total Protein (6.3-8.2) g/dL Albumin (3.5-5.0) g/dL Lipase (23-300) U/L Urine Color (YELLOW) Urine Appearance (CLEAR) Urine pH (5-6) Ur Specific Mico (1.005-1.025) Urine Protein (Negative) Urine Ketones (NEGATIVE) Urine Blood (0-5) Randy/ul Urine Nitrite (NEGATIVE) Urine Bilirubin (NEGATIVE) Urine Urobilinogen (0-1) mg/dL Ur Leukocyte Esterase (NEGATIVE) Urine WBC (Auto) (0-5) /HPF Urine RBC (Auto) (0-2) /HPF U Epithel Cells (Auto) (FEW) /HPF Urine Bacteria (Auto) (NEGATIVE) /HPF Urine Mucus (Auto) (NEGATIVE) /HPF Urine Culture Reflexed (NO) Urine Glucose (NEGATIVE) mg/dL Influenza Type A Ag (NEGATIVE) Influenza Type B Ag (NEGATIVE) RSV (PCR) (Negative) SARS-CoV-2 (PCR) (NEGATIVE) 11/13/20 11/13/20 Range/Units 06:52 06:52 WBC 7.8 (4.0-10.5) K/mm3 RBC 4.59 (4.1-5.6) M/mm3 Hgb 13.4 (12.5-18.0) gm/dl Hct 42.7 (42-50) % MCV 93.0 (78-100) fl MCH 29.2 (26-32) pg MCHC 31.4 L (32-36) g/dl RDW 13.7 (11.5-14.0) % Plt Count 231 (150-450) K/mm3 MPV 9.3 (7.5-11.0) fl Gran % 64.1 (36.0-66.0) % Eos # (Auto) 0.13 (0-0.5) Absolute Lymphs (auto) 2.13 (1.0-4.6) Absolute Monos (auto) 0.53 (0.0-1.3) Lymphocytes % 27.3 (24.0-44.0) % Monocytes % 6.8 (0.0-12.0) % Eosinophils % 1.7 (0.00-5.0) % Basophils % 0.1 (0.0-0.4) % Absolute Granulocytes 5.01 (1.4-6.9) Basophils # 0.01 (0-0.4) Sodium 139 (137-145) mmol/L Potassium 3.9 (3.5-5.1) mmol/L Chloride 107 (98-107) mmol/L Carbon Dioxide 29 (22-30) mmol/L Anion Gap 6.8 (5-15) MEQ/L BUN 12 (9-20) mg/dL Creatinine 0.87 (0.66-1.25) mg/dL Estimated GFR > 60.0 ML/MIN Glucose 88 (74-106) mg/dL Calcium 8.4 (8.4-10.2) mg/dL Total Bilirubin 0.80 (0.2-1.3) mg/dL AST 22 (17-59) U/L ALT 5 (0-50) U/L Alkaline Phosphatase 79 (38-126) U/L Troponin I (0.000-0.034) ng/mL Serum Total Protein 5.7 L (6.3-8.2) g/dL Albumin 3.5 (3.5-5.0) g/dL Lipase (23-300) U/L Urine Color (YELLOW) Urine Appearance (CLEAR) Urine pH (5-6) Ur Specific [place] (1.005-1.025) Urine Protein (Negative) Urine Ketones (NEGATIVE) Urine Blood (0-5) Randy/ul Urine Nitrite (NEGATIVE) Urine Bilirubin (NEGATIVE) Urine Urobilinogen (0-1) mg/dL Ur Leukocyte Esterase (NEGATIVE) Urine WBC (Auto) (0-5) /HPF Urine RBC (Auto) (0-2) /HPF U Epithel Cells (Auto) (FEW) /HPF Urine Bacteria (Auto) (NEGATIVE) /HPF Urine Mucus (Auto) (NEGATIVE) /HPF Urine Culture Reflexed (NO) Urine Glucose (NEGATIVE) mg/dL Influenza Type A Ag (NEGATIVE) Influenza Type B Ag (NEGATIVE) RSV (PCR) (Negative) SARS-CoV-2 (PCR) (NEGATIVE) - Radiology Exams Ordered Rad Exams-Entire Visit: Radiology Procedures Category Date Time Status ABDOMEN AND PELVIS W CONTRAST [CT] Stat Exams 11/12/20 18:12 Completed CHEST WITH CONTRAST [CT] Stat Exams 11/12/20 18:13 Completed - Procedures and Test Procedures and Tests throughout Hospitalization: Therapy Orders & Screens 11/12/20 21:47 EKG [id number] Comment: 11/13/20 05:00 EKG DAILY Comment: Diagnosis: CHEST PAIN, ABDOMINAL PAIN, FALL, GERD, PARKINSON'S DISEASE 11/13/20 10:05 PT Eval & Treat ( Order) ONCE Reason for Eval:: fall Diagnosis: CHEST PAIN, ABDOMINAL PAIN, FALL, GERD, PARKINSON'S DISEASE 11/14/20 05:00 EKG DAILY Comment: Diagnosis: CHEST PAIN, ABDOMINAL PAIN, FALL, GERD, PARKINSON'S DISEASE 11/15/20 05:00 EKG DAILY Comment: Diagnosis: CHEST PAIN, ABDOMINAL PAIN, FALL, GERD, PARKINSON'S DISEASE 11/16/20 05:00 EKG DAILY Comment: Diagnosis: CHEST PAIN, ABDOMINAL PAIN, FALL, GERD, PARKINSON'S DISEASE - Discharge Disposition: Home, Self-Care Condition: Stable Prescriptions: New Ketorolac Tromethamine [Toradol] 10 mg PO TID PRN #12 tablet Continue Cholecalciferol (Vitamin D3) [Vitamin D3] 5,000 unit PO DAILY Tyrosine [l-Tyrosine] 500 mg PO DAILY Saw [place] Fruit/Zinc Picoli [Saw [place] 450 mg Capsule] 150 mg PO BID Ginkgo Biloba 60 mg PO BID Docusate Sodium [Stool Softener] 100 mg PO BID Diazepam 5 mg [Valium 5 MG] 10 mg PO HS Rasagiline Mesylate 0.5 mg PO DAILY Omeprazole 40 mg PO DAILY Amantadine HCl [Gocovri] 274 mg PO HS Bromocriptine Mesylate [Parlodel] 10 mg PO TID Istradefylline [Nourianz] 20 mg PO DAILY Carbidopa/Levodopa [Carbidopa-Levo 25-100 Tab] 2 tab PO QID [place]-3S/Dha/Epa/Fish Oil/D3 [Fish Oil Gummies] 1 each PO DAILY L.acidoph,Paracasei, B.lactis [Probiotic] 1 each PO DAILY Ubidecarenone [Co Q-10] 200 mg PO DAILY Turmeric 200 mg PO DAILY Cartilage/Collagen/Bor/Hyalur [Joint Health Tablet] 1 each PO DAILY Glucosamine Sulfate 1,000 mg PO DAILY Instructions: Parkinson Disease, Preventing Falls, Getting Up From a Fall Additional Instructions: outpatient PT Follow up with: ELIAZAR TRACEY DO [Primary Care Provider] - 11/27/20 10:30 am Forms: Discharge Instructions
[2020-11-13] MEDS ORDERED: Valium 5 MG PO SCH (22:00)
[2020-11-13] MEDS ORDERED: AMANTADINE HCL PO SCH (22:00)
== END 2020-11-13 17:08 | disposition home or self-care (01) ==
LOC: ED 17:47 → MED SURG 23:35
PROVIDERS: ADMIT Family Medicine; ATTEND Family Medicine
DX: S30.1XXA Contusion of abdominal wall, initial encounter (principal); W01.198A Fall on same level from slipping, tripping and stumbling with subsequent striking against other object, initial encounter; G20 Parkinson's disease; R07.9 Chest pain, unspecified; R10.12 Left upper quadrant pain; K21.9 Gastro-esophageal reflux disease without esophagitis; Z79.899 Other long term (current) drug therapy; Z20.828 Contact with and (suspected) exposure to other viral communicable diseases
CPT/HCPCS: 0241U; 36000; 36415; 71260; 74177; 80053; 81001; 83690; 84484; 85025; 93005; 93268; 94762; 96360; 96374; 96375; 97161; 97530; 99285; G0378; J1885; J2270; J2405; A9270-GY

== ENCOUNTER 2022-07-12 21:17 | Emergency (ER) | payer MEDICARE ==
[2022-07-12] MEDS ORDERED: ZOFRAN ODT 4 MG PO ONE (23:54)
[2022-07-12 23:55] VITALS: O2SAT 97
[2022-07-12 23:56] LABS: Absolute Neutrophil Ct (ANC) 6.79 x10^3/uL (1.4-6.9); BASOPHIL % 0.2 % (0.0-0.4); Basophil (Absolute #) 0.02 x10^3/uL (0-0.4); Eosinophil (Absolute #) 0 x10^3/uL (0-0.5); Hematocrit 47.3 % (42-50); Hemoglobin 15.4 g/dL (12.5-18.0); IMMATURE GRAN # 0.02 x10^3u/L (0.00-0.03); IMMATURE GRAN % 0.2 % (0.00-0.4); Lymphocyte (Absolute #) 1.12 x10^3/uL (1.0-4.6); Mean Cell Volume 90.6 fL (78-100); Mean Corpuscular Hemoglobin 29.5 pg (26-32); Mean Corpuscular Hgb Concent. 32.6 g/dL (32-36); Mean Platelet Volume 8.7 fL (7.5-11.0); Monocyte (Absolute #) 0.64 x10^3/uL (0.0-1.3); Monocytes % 7.5 % (0.0-12.0); Neutrophil % 79.1 % (36.0-66.0); Platelet Count 214 x10^3/uL (150-450); Red Blood Count 5.22 x10^6/uL (4.1-5.6); Red Cell Distribution Width 12.7 % (11.5-14.0); White Blood Count 8.6 x10^3/uL (4.0-10.5)
[2022-07-12] MEDS ORDERED: ZOFRAN ODT 4 MG ONE (23:56)
--- NOTE | 2022-07-13 | ERPHSYRPT ---
- History of Present Illness Time Seen by Provider: 07/12/22 23:55 Source: patient, family Exam Limitations: no limitations Patient Subjective Stated Complaint: pt states I went to [facility] today and I'm positive for covid. I feel like I'm going to get sick. Triage Nursing Assessment: pt ambulated into er with cane; pt is axo x4; c/o nausea; pt is covid +; pt states abd pain; abd is round, tender; hyperactive bowel sounds in quads; tenderness to rt abd; clear lung sounds in all lobes; no respiratory distress present; skin PDW; hypertensive Physician History: pt tested positive for Covid today, but is feeling abdominal pain which is less common for this, and had tenderness earlier by nurse - discussed risk and benefit with pt and he wishes to proceed. Ordered CBC CMP and CT abd and CXR - reviewed results and discussed with pt. Timing/Duration: today Cough Quality/Degree: dry cough Possible Cause: no prior episodes Modifying Factors: Improves With: coughing Associated Symptoms: cough, other (N/V abd pain) Allergies/Adverse Reactions: codeine Allergy (Verified 03/31/22 14:49) Nausea and Vomiting ropinirole [From Requip] Allergy (Verified 03/31/22 14:49) Nausea and Vomiting Home Medications: Amantadine HCl [Gocovri] 274 mg PO HS 11/12/20 [History] Bromocriptine Mesylate [Parlodel] 10 mg PO TID 11/12/20 [History] Carbidopa/Levodopa [Carbidopa-Levo 25-100 Tab] 2 tab PO QID 11/12/20 [History] Cholecalciferol (Vitamin D3) [Vitamin D3] 5,000 unit PO DAILY 11/12/20 [History] Diazepam 5 mg [Valium 5 MG] 10 mg PO HS 11/12/20 [History] Docusate Sodium [Stool Softener] 100 mg PO BID 11/12/20 [History] Ginkgo Biloba Yarnell Extract [Ginkgo Biloba] 60 mg PO BID 11/12/20 [History] Parthenon-3S/Dha/Epa/Fish Oil/D3 [Fish Oil Gummies] 1 each PO DAILY 11/12/20 [History] Omeprazole 40 mg PO DAILY 11/12/20 [History] Rasagiline Mesylate 0.5 mg PO DAILY 11/12/20 [History] Saw [place] Fruit/Zinc Picoli [Saw [place] 450 mg Capsule] 540 mg PO TID 11/12/20 [History] Tyrosine [l-Tyrosine] 500 mg PO DAILY 11/12/20 [History] Cartilage/Collagen/Bor/Hyalur [Joint Health Tablet] 1 each PO DAILY 11/13/20 [History] L.acidoph,Paracasei, B.lactis [Probiotic] 1 each PO DAILY 11/13/20 [History] Turmeric 750 mg PO DAILY 11/13/20 [History] Albuterol Sulfate [Albuterol Sulfate Hfa] 8.5 gm IH DAILY 03/31/22 [History] Istradefylline [Nourianz] 20 mg PO DAILY 03/31/22 [History] Melatonin 5 mg PO HS 03/31/22 [History] Oregano Oil [Oil of Oregano] 150 mg PO DAILY 03/31/22 [History] Hx Tetanus, Diphtheria Vaccination/Date Given: Yes Hx Influenza Vaccination/Date Given: Yes Hx Pneumococcal Vaccination/Date Given: Yes Travel Risk - International Travel Have you traveled outside of the country in past 3 weeks: No - Coronavirus Screening Are you exhibiting any of the following symptoms?: Yes Symptoms: Fever, Headaches/Body Aches/Fatigue Close contact with a COVID-19 positive Pt in past 14-21 Days: No - Vaccine Status Have you recieved a Covid-19 vaccination: Yes Battery Installer: Moderna - Vaccination Dates Date of 2cond Vaccination (if applicable): 09/19/20 - Review of Systems Constitutional: No Fever, No Chills Eyes: No Symptoms Ears, Nose, & Throat: No Symptoms Respiratory: Cough, No Dyspnea Cardiac: No Chest Pain, No Edema, No Syncope Abdominal/Gastrointestinal: Abdominal Pain, Nausea, No Vomiting, No Diarrhea Genitourinary Symptoms: No Dysuria Musculoskeletal: No Back Pain, No Neck Pain Skin: No Rash Neurological: No Dizziness, No Focal Weakness, No Sensory Changes Psychological: No Symptoms Endocrine: No Symptoms Hematologic/Lymphatic: No Symptoms Immunological/Allergic: No Symptoms All Other Systems: Reviewed and Negative - Past Medical History Pertinent Past Medical History: Yes Neurological History: Other ENT History: No Pertinent History Cardiac History: No Pertinent History Respiratory History: Asthma Endocrine Medical History: No Pertinent History Musculoskeletal History: No Pertinent History GI Medical History: GERD History: No Pertinent History Psycho-Social History: No Pertinent History Male Reproductive Disorders: Prostate Problems Other Medical History: Parkinson's Dx 2001 - Past Surgical History Past Surgical History: Yes Neuro Surgical History: No Pertinent History Cardiac: No Pertinent History Respiratory: No Pertinent History Gastrointestinal: No Pertinent History Genitourinary: No Pertinent History Musculoskeletal: Orthopedic Surgery Male Surgical History: Prostate Surgery, Other Other Surgical History: 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, urolift (7 ami remain) - Social History Smoking Status: Former smoker Exposure to second hand smoke: No Drug Use: none Patient Lives Alone: No - Nursing Vital Signs Nursing Vital Signs: Initial Vital Signs Temperature 98.9 F 07/12/22 21:30 Pulse Rate 84 07/12/22 21:30 Respiratory Rate 18 07/12/22 21:30 Blood Pressure 147/70 07/12/22 21:30 O2 Sat by Pulse Oximetry 97 07/12/22 21:30 Pain Scale Pain Intensity 0 - Physical Exam General Appearance: no apparent distress, alert Eye Exam: PERRL/EOMI, eyes nml inspection Ears, Nose, Throat Exam: normal ENT inspection, TMs normal, pharynx normal, moist mucous membranes Neck Exam: normal inspection, non-tender, supple, full range of motion Respiratory Exam: normal breath sounds, lungs clear, No respiratory distress Cardiovascular Exam: regular rate/rhythm, normal heart sounds Gastrointestinal/Abdomen Exam: soft, tenderness (intermit general tenderness ) Rectal Exam: deferred Back Exam: normal inspection, No CVA tenderness, No vertebral tenderness Extremity Exam: normal inspection, normal range of motion Neurologic Exam: alert, oriented x 3, cooperative, normal mood/affect, sensation nml, No motor deficits Skin Exam: normal color, warm, dry, No rash Lymphatic Exam: No adenopathy SpO2 Interpretation: normal SpO2: 97 O2 Delivery: Room Air - Course Nursing assessment & vital signs reviewed: Yes - Radiology Exams Chest X-ray Interpretation: Reviewed by me, Other (mild nodulr infiltrates) - CT Exams Abdomen/Pelvis CT Interpretation: Tele-radiologist Report, Normal Appendix, No appendicitis, Other (arterial Dx aorta) Ordered Tests: Active Orders 24 hr Category Date Time Status ABDOMEN AND PELVIS W/0 CONTRAS [CT] Stat Exams 07/13/22 00:01 Taken CHEST 1 VIEW (PORTABLE) Stat Exams 07/12/22 23:27 Taken CBC W DIFF Stat Lab 07/12/22 23:54 Completed CMP Stat Lab 07/12/22 23:54 Completed UA W/RFX UR CULTURE Stat Lab 07/12/22 23:55 Completed Medication Summary Discontinued Medications Generic Name Dose Route Start Last Admin Trade Name Didi PRN Reason Stop Dose Admin Ondansetron HCl 4 mg 07/12/22 23:54 07/12/22 23:56 Zofran 4 Mg/Udtablet Orally Disintegrating PO 07/12/22 23:55 4 mg STAT ONE Administration Ondansetron HCl Confirm 07/12/22 23:56 Zofran 4 Mg/Udtablet Orally Disintegrating Administered 07/12/22 23:57 Dose 4 mg .ROUTE .[employer] ONE Lab/Rad Data: Laboratory Result Diagrams 07/12/22 23:54 07/12/22 23:54 Laboratory Results 07/12/22 07/12/22 07/12/22 Range/Units 23:55 23:54 23:54 WBC 8.6 (4.0-10.5) x10^3/uL RBC 5.22 (4.1-5.6) x10^6/uL Hgb 15.4 (12.5-18.0) g/dL Hct 47.3 (42-50) % MCV 90.6 (78-100) fL MCH 29.5 (26-32) pg MCHC 32.6 (32-36) g/dL RDW 12.7 (11.5-14.0) % Plt Count 214 (150-450) x10^3/uL MPV 8.7 (7.5-11.0) fL Gran % 79.1 H (36.0-66.0) % Immature Gran % (Auto) 0.2 (0.00-0.4) % Nucleat RBC Rel Count 0.0 (0.00-0.1) % Eos # (Auto) 0 (0-0.5) x10^3/uL Immature Gran # (Auto) 0.02 (0.00-0.03) x10^3u/L Absolute Lymphs (auto) 1.12 (1.0-4.6) x10^3/uL Absolute Monos (auto) 0.64 (0.0-1.3) x10^3/uL Absolute Nucleated RBC 0.00 (0.00-0.01) x10^3u/L Lymphocytes % 13.0 L (24.0-44.0) % Monocytes % 7.5 (0.0-12.0) % Eosinophils % 0.0 (0.00-5.0) % Basophils % 0.2 (0.0-0.4) % Absolute Granulocytes 6.79 (1.4-6.9) x10^3/uL Basophils # 0.02 (0-0.4) x10^3/uL Sodium 135 L (137-145) mmol/L Potassium 4.3 (3.5-5.1) mmol/L Chloride 101 (98-107) mmol/L Carbon Dioxide 28 (22-30) mmol/L Anion Gap 10.6 (5-15) MEQ/L BUN 15 (9-20) mg/dL Creatinine 0.89 (0.66-1.25) mg/dL Estimated GFR > 60.0 ML/MIN Glucose 123 H (74-106) mg/dL Calcium 9.0 (8.4-10.2) mg/dL Total Bilirubin 0.90 (0.2-1.3) mg/dL AST 29 (17-59) U/L ALT 12 (0-50) U/L Alkaline Phosphatase 105 (38-126) U/L Serum Total Protein 7.6 (6.3-8.2) g/dL Albumin 4.6 (3.5-5.0) g/dL Urine Color Yellow (Yellow) Urine Appearance Clear (Clear) Urine pH 5.5 (4.6-8.0) Ur Specific [place] 1.020 (1.005-1.030) Urine Protein Trace A (Negative) Urine Glucose (UA) Negative (Negative) mg/dL Urine Ketones Trace A (Negative) Urine Blood Negative (Negative) Urine Nitrite Negative (Negative) Urine Bilirubin Negative (Negative) Urine Urobilinogen 0.2 (0.2) mg/dL Ur Leukocyte Esterase Negative (Negative) U Hyaline Cast (Auto) NONE SEEN (0-2) /LPF Urine Microscopic RBC 0-2 (0-5) /HPF Urine Microscopic WBC 0-2 (0-5) /HPF Ur Epithelial Cells None Seen (None Seen) /HPF Urine Bacteria None Seen (None Seen) /HPF Urine Culture Reflexed NO (NO) - Progress Progress: improved, re-examined Air Movement: good Progress Note: 07/13/22 01:[address] reading now and this will take some more time. 07/13/22 02:27 discussed results with pt , and that we did not find a source for his abd pain and that additional pathology could still be evolving undetected with need for f/u PMD and he prefers this outpt . He is being given an pulse Ox to monitor his O2 level also and to return if this is falling, or if short of breath, or vomiting not controlled on meds. He actually feels good and does not wish any covid meds or other interventions at this time and is not immunocompromized that he knows of. . He has the capacity to understand this discussionl 07/13/22 02:46 pt has already been place on medication for treated of those at risk for COvid. He wishes to continue this. THe web site has not identified any adverse drug interactions for this med 07/13/22 02:54 Blood Culture(s) Obtained: No Antibiotics given: No Counseled pt/family regarding: lab results, diagnosis, need for follow-up, rad results - Departure Departure Disposition: Home Clinical Impression: COVID Condition: Good Critical Care Time: No Referrals: ELIAZAR TRACEY DO [Primary Care Provider] - Follow up/PCP as directed Instructions: COVID-19 (DC) Additional Instructions: Nausea may be a side effect of your new medicine for Covid, or an unrelated c ondition evolving. We are giving you some nausea medicine. The avaialble information does not show an interaction , but the information is limited at this early time in experience of the use of that COvid med. If not working or other symptoms of concern see your Dr. or return. Monitor your oxygen level and return or call your Dr. if this level is dropping and especially if in the low 90s or below. Prescriptions: Ondansetron ODT 4 MG [Zofran Odt 4 mg] 4 mg PO Q6H PRN PRN #10 tablet PRN Reason: Nausea
[2022-07-13 00:14] LABS: ALBUMIN 4.6 g/dL (3.5-5.0); ALKALINE PHOSPHATASE 105 U/L (38-126); ANION GAP 10.6 MEQ/L (5-15); BLOOD UREA NITROGEN 15 mg/dL (9-20); CHLORIDE 101 mmol/L (98-107); Carbon Dioxide 28 mmol/L (22-30); Creatinine 1 0.89 mg/dL (0.66-1.25); EST GLOMERULAR FILTRATION RATE > 60.0 ML/MIN; Glucose 123 mg/dL (74-106); Potassium 4.3 mmol/L (3.5-5.1); SGOT/AST 29 U/L (17-59); SGPT/ALT 12 U/L (0-50); SODIUM 135 mmol/L (137-145); Total Protein 7.6 g/dL (6.3-8.2)
[2022-07-13 00:23] LABS: Appearance Clear (Clear); Bacteria None Seen /HPF (None Seen); Bilirubin Negative (Negative); Blood Negative (Negative); Epithelial Cells None Seen /HPF (None Seen); Glucose, Urine Negative (Negative); Hyaline Casts NONE SEEN /LPF (0-2); Ketones Trace (Negative); Leukocyte Esterase Negative (Negative); Nitrite Negative (Negative); Ph 5.5 (4.6-8.0); Protein,Urine Dip Trace (Negative); RBC 0-2 /HPF (0-5); Urobilinogen 0.2 mg/dL (0.2); WBC 0-2 /HPF (0-5)
[2022-07-13 00:24] LABS: ADD URINE CULTURE? NO (NO)
[2022-07-13 02:48] VITALS: BP 145/72; PULSE 68
--- NOTE | 2022-07-13 09:07 | XRAY ---
Indication: Abdomen pain/tenderness. Multiple contiguous axial images obtained through the abdomen and pelvis without contrast. Comparison: November 12, 2020 Lung bases clear. Heart not enlarged. Noncontrasted stomach and bowel loops appear nonobstructed with normal appendix. Mild diffuse colonic fecal debris greatest in ascending and transverse colon. Again enlarged prostate gland with prostate radiation seeds and tiny splenic calcified granulomas. No free fluid/air. Remaining liver, gallbladder, pancreas, spleen, adrenal glands, kidneys, ureters, and bladder are unremarkable for noncontrast exam. There remains mild scattered arterial scrota calcifications without AAA. Osseous structures intact again with osteopenia and progressive worsening mild/moderate degenerative changes throughout the spine. Impression: 1. Mild fecal stasis without attrition. 2. Chronic findings including enlarged prostate gland with radiation seeds, arteriosclerotic disease, chronic bony findings, and old granulomatous disease. 3. Remaining CT abdomen/pelvis without contrast exam is negative. Comment: Preliminary interpretation made by [facility]. No critical discrepancy.
--- NOTE | 2022-07-13 09:09 | XRAY ---
Indication: Covid 19 symptoms. Comparison: April 04, 2022 Portable chest remains inflated and clear. Heart not enlarged. Bony thorax intact again with osteopenia and mild injected changes. No new/acute findings. Impression: Continued nonacute chest.
== END 2022-07-13 03:30 | disposition home or self-care (01) ==
LOC: ED 21:17
DX: U07.1 COVID-19 (principal); R10.9 Unspecified abdominal pain; Z79.899 Other long term (current) drug therapy
CPT/HCPCS: 36415; 71045; 74176; 80053; 81001; 85025; 99283; Q0162

== ENCOUNTER 2023-04-01 05:58 | Day surgery (SDC) | payer MEDICARE ==
[2023-04-01] MEDS ORDERED: Lactated Ringers 1,000 ML IV SCH (06:00)
[2023-04-01 06:35] VITALS: RESP 16
[2023-04-01] MEDS ORDERED: DIPRIVAN 200 MG/20 ML IV ONE ×2 (07:13→07:54)
[2023-04-01 08:44] VITALS: BP 171/98; PULSE 65; TEMP 97.5; O2SAT 99
--- NOTE | 2023-04-01 08:46 | OP ---
SURGERY DATE/TIME: 04/01/2023 PREOPERATIVE DIAGNOSIS: Screening colonoscopy. POSTOPERATIVE DIAGNOSIS: Normal colon. PROCEDURE: Colonoscopy. SURGEON: Néstor Crespo M.D. ANESTHESIA: MAC by Jabier Benz CRNA. ESTIMATED BLOOD LOSS: None. SPECIMENS: None. DESCRIPTION OF PROCEDURE: After informed written consent was obtained, the patient was taken to the endoscopy suite. He was placed in left lateral decubitus position and anesthesia was titrated to desired level of consciousness. Digital rectal exam showed some mild external hemorrhoids but no internal lesions with normal sphincter tone. The scope was inserted into the rectum and sequentially the entire colonic mucosa was traversed. The level of cecum was reached and verified with direct visualization of the ileocecal valve. Upon withdrawal careful mucosal inspection revealed no gross abnormalities. Prep was noted to be fair. Prior to withdrawal retroflexion was performed and showed no internal lesions. The scope was removed. The patient was transferred to the recovery room in good condition.
== END 2023-04-01 08:58 | disposition home or self-care (01) ==
LOC: SDC 05:58
PROVIDERS: ATTEND Family Medicine
DX: Z12.11 Encounter for screening for malignant neoplasm of colon (principal); K64.4 Residual hemorrhoidal skin tags
CPT/HCPCS: J2704

== ENCOUNTER 2023-05-04 02:56 | Emergency (ER) | payer MEDICARE ==
[2023-05-04 03:40] VITALS: TEMP 98
[2023-05-04 04:21] VITALS: RESP 18
--- NOTE | 2023-05-04 05:14 | XRAY ---
CLINICAL HISTORY:fall COMPARISON:None TECHNIQUE:Axial sections of CT face examination were obtained without administration of intravenous contrast. Reformatted coronal and sagittal images were acquired. FINDINGS: Soft tissue injury with swelling and a possible soft tissue defect with air specks in the nasal region with fracture of bilateral nasal bones with minimal displacement. Visualized paranasal sinuses and mastoid air cells appear unremarkable. Bilateral osteotomatal complexes are intact. Deviated nasal septum with convexity towards the right side. Right-sided turbinate hypertrophy. Bilateral globes and orbits are intact. Bilateral temporomandibular joints are intact. Degenerative changes in the visualized cervical spine. IMPRESSION: Soft tissue swelling and possible soft tissue defect in the nasal region with fracture of bilateral nasal bones. Deviated nasal septum with convexity towards the right side. Right-sided turbinate hypertrophy. Electronically Signed by: Meghan Metzger MD. (05/04/2023 04:13:01 EXTRUDER OPERATOR HELPER)
--- NOTE | 2023-05-04 05:15 | XRAY ---
CLINICAL HISTORY:fall COMPARISON:None. TECHNIQUE:Thin axial CT of the cervical spine was performed with sagittal and coronal reconstructions without contrast. FINDINGS: No acute cervical vertebral fracture or malalignment. Straightening of cervical spine likely due to musculoskeletal spasm seen. No prevertebral soft tissue swelling. The atlantooccipital and atlantoaxial joints are congruent. Odontoid process cystic changes and multiple degenerative periodontoid calcifications are seen. The vertebral bodies are normal in height. Significant anterior osteophytosis and calcification of the anterior longitudinal ligament seen mainly at C3 upto C7 bodies. Intervertebral disc spaces are normal except at C5-C6 and C6-7 level which show adjacent to subchondral sclerosis and cystic changes. Chronic changes of variable degree mild to moderate disc osteophyte complexes and facet joint degenerative arthropathies seems to causing neural foramina narrowing at different level. MRI would be the modality of choice further, if needed. Visualized posterior fossa and base of the skull appears unremarkable. IMPRESSION: No acute cervical vertebral fracture or malalignment. Straightening of cervical spine likely due to musculoskeletal spasm seen. Mild to moderate spondylotic changes. Electronically Signed by: Meghan Metzger MD. (05/04/2023 04:14:19 PAPER FOLDER)
--- NOTE | 2023-05-04 05:17 | XRAY ---
CLINICAL HISTORY:fall COMPARISON:None TECHNIQUE:Axial sections of CT head examination were obtained without administration of intravenous contrast. Reformatted coronal and sagittal images were acquired. FINDINGS: No acute intracranial hemorrhage or evidence of traumatic brain injury. Soft tissue injury in the nasal region with nasal bone fracture, better evaluated on CT facial bones. No discrete calvarial fracture noted. Mild age-related involutional changes. No established aorta or infarction. No mass effect, midline shift or hydrocephalus. Pineal region calcification. Visualized paranasal sinuses and mastoid air cells appear unremarkable. Soft tissue injury in the nasal region with nasal bone fracture, better evaluated on CT facial bones. IMPRESSION: No acute intracranial abnormality. Soft tissue injury in the nasal region with nasal bone fracture, better evaluated on CT facial bones. Electronically Signed by: Meghan Metzger MD. (05/04/2023 04:15:20 TRAINING DEVELOPMENT SPECIALIST)
[2023-05-04] MEDS ORDERED: XYLOCAINE 1% HCL 20 ML MDV ONE (05:43)
[2023-05-04] MEDS ORDERED: BACIGUENT PACKET TP ONE (06:08)
[2023-05-04] MEDS ORDERED: KEFLEX 500 MG PO ONE (06:09)
[2023-05-04] MEDS ORDERED: BACIGUENT PACKET ONE (06:10)
[2023-05-04] MEDS ORDERED: KEFLEX 500 MG ONE (06:11)
[2023-05-04 06:16] VITALS: BP 144/75; PULSE 75; O2SAT 96
--- NOTE | 2023-05-04 06:27 | ERPHSYRPT ---
- History of Present Illness Time Seen by Provider: 05/04/23 04:21 Source: patient Exam Limitations: no limitations Patient Subjective Stated Complaint: pt and spouse report that at approx 0210 pt fell out of bed. reports that he has a suspected REM sleep disturbance and that he thinks he was dreaming that he was fighting someone and unintentionally fell face forward out of bed landing on his face and left elbow onto a rug covering hardwood floor. Triage Nursing Assessment: pt ambulated to room 9 independently with a slow shuffling gait after standing on scale for weight acquisition, acted as stand by assist in case he lost his balance which is common for him. pt is alert and oriented times three, able to move all extremities (limited due to parkinson's), able to speak slowly in complete sentences, and with resp even and unlabored. all extremities with palpable pulses and color, cap refill, and sensation within normal limits. skin tear approx 3cm x 3cm noted to left elbow with bleeding controlled and bandage on per spouse, skin not approximated. laceration noted to right side of nose that is approx 3cm X1cm with possible avulsion. c collar applied after pt complained of posterior neck pain. nose laceration cleaned with hibiclens, edges not approximated, and no active bleeding. pt denies numbness or tingling, cp, sob, difficulty breathing, LOC, dizziness, lightheadedness, n/v, diarrhea, change in appetite, change in urine or bowel elimination. pts spouse stated that they are waiting for insurance approval for sleep study to ascertain if pt does have an REM sleep disturbance. Physician History: 67-year-old male with multiple medical problems including suspected REM sleep disorder presented in the ER with chief complaint of fall out of bed while he was fighting in dream and hit the floor. Patient has a laceration on the nose and a skin abrasion left elbow. Patient woke up immediately after fall with no loss of consciousness. Complaining of dull aching mild to moderate nasal pain. Mild headache but no neck pain. C-collar is applied on presentation in the ER. Intact range of motion of left elbow with minimal discomfort. No difficulty walking. No numbness tingling or focal weakness reported. No injury anywhere else. Allergies/Adverse Reactions: codeine Allergy (Verified 05/04/23 03:03) Nausea and Vomiting ropinirole [From Requip] Allergy (Verified 05/04/23 03:03) Nausea and Vomiting selegiline Allergy (Verified 05/04/23 03:03) Nausea suvorexant [From [facility]] Adverse Reaction (Verified 05/04/23 03:03) Home Medications: Amantadine HCl [Gocovri] 274 mg PO HS 11/12/20 [History] Carbidopa/Levodopa [Carbidopa-Levo 25-100 Tab] 2 tab PO QID 11/12/20 [History] Cholecalciferol (Vitamin D3) [Vitamin D3] 5,000 unit PO DAILY 11/12/20 [History] Diazepam 5 mg [Valium 5 MG] 10 mg PO HS 11/12/20 [History] Docusate Sodium [Stool Softener] 100 mg PO BID 11/12/20 [History] Ginkgo Biloba [place] Extract [Ginkgo Biloba] 60 mg PO BID 11/12/20 [History] [place]-3S/Dha/Epa/Fish Oil/D3 [Fish Oil Gummies] 1 each PO DAILY 11/12/20 [History] Omeprazole 40 mg PO DAILY 11/12/20 [History] Rasagiline Mesylate 0.5 mg PO DAILY 11/12/20 [History] [place] Fruit/Zinc Picoli [Saw [place] 450 mg Capsule] 540 mg PO TID 11/12/20 [History] Tyrosine [l-Tyrosine] 500 mg PO DAILY 11/12/20 [History] Cartilage/Collagen/Bor/Hyalur [Joint Health Tablet] 1 each PO DAILY 11/13/20 [History] L.acidoph,Paracasei, B.lactis [Probiotic] 1 each PO DAILY 11/13/20 [History] Turmeric 750 mg PO DAILY 11/13/20 [History] Albuterol Sulfate [Albuterol Sulfate Hfa] 8.5 gm IH DAILY 03/31/22 [History] Istradefylline [Nourianz] 20 mg PO DAILY 03/31/22 [History] Melatonin 5 mg PO HS 03/31/22 [History] Oregano Oil [Oil of Oregano] 150 mg PO DAILY 03/31/22 [History] Hx Tetanus, Diphtheria Vaccination/Date Given: Yes Hx Influenza Vaccination/Date Given: Yes Hx Pneumococcal Vaccination/Date Given: Yes Immunizations Up to Date: Yes Travel Risk - International Travel Have you traveled outside of the country in past 3 weeks: No - Coronavirus Screening Are you exhibiting any of the following symptoms?: No Close contact with a COVID-19 positive Pt in past 14-21 Days: No - Vaccine Status Have you recieved a Covid-19 vaccination: Yes 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 - Vaccination Dates Date of 2cond Vaccination (if applicable): 09/19/20 - Review of Systems Constitutional: No Symptoms Eyes: No Symptoms Ears, Nose, & Throat: Nose Congestion Respiratory: No Symptoms Cardiac: No Symptoms Abdominal/Gastrointestinal: No Symptoms Genitourinary Symptoms: No Symptoms Musculoskeletal: Injury Neurological: No Symptoms Psychological: No Symptoms Endocrine: No Symptoms Immunological/Allergic: No Symptoms - Past Medical History Pertinent Past Medical History: Yes Neurological History: Other ENT History: No Pertinent History Cardiac History: Hypertension, Other Respiratory History: No Pertinent History Endocrine Medical History: No Pertinent History Musculoskeletal History: Degenerative Disk Disease GI Medical History: GERD History: No Pertinent History Psycho-Social History: No Pertinent History Male Reproductive Disorders: Prostate Problems Other Medical History: Parkinson's Dx 2001, ?possible REM sleep disorder pending sleep study - Past Surgical History Past Surgical History: Yes Neuro Surgical History: No Pertinent History Cardiac: No Pertinent History Respiratory: No Pertinent History Gastrointestinal: No Pertinent History Genitourinary: No Pertinent History Musculoskeletal: Orthopedic Surgery Male Surgical History: Prostate Surgery, Other Other Surgical History: 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, urolift (7 ami remain) - Social History Smoking Status: Former smoker Exposure to second hand smoke: No Drug Use: marijuana Patient Lives Alone: No - Nursing Vital Signs Nursing Vital Signs: Initial Vital Signs Temperature 98.0 F 05/04/23 03:04 Pulse Rate 61 05/04/23 03:04 Respiratory Rate 20 05/04/23 03:04 Blood Pressure 152/73 05/04/23 03:04 O2 Sat by Pulse Oximetry 97 05/04/23 03:04 Pain Scale Pain Intensity 5 - Physical Exam General Appearance: no apparent distress, alert Eye Exam: bilateral eye: normal inspection, PERRL, EOMI Ear Exam: bilateral ear: auricle normal, canal normal, TM normal Nasal Exam: No normal inspection (Inverted Y-shaped laceration on the bridge of the nose. Broken skin but no exposedbone. 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 tested, normal mood/affect, nml cerebellar function, nml station & gait, sensation nml, No motor deficits Skin Exam: normal color SpO2 Interpretation: normal SpO2: 96 O2 Delivery: Room Air Procedures - Laceration/Wound Repair Face Time of Procedure: 06:00 Wound Location: face Wound Length (cm): 3 Wound's Depth, Shape: into muscle, irregular Wound Explored: clean Irrigated: Yes Hibiclens Prep: Yes Anesthesia: 1% Lidocaine Volume Anesthetic (ccs): 2 Wound Repaired With: sutures Suture Size/Type: 5-0, ethilon Number of Sutures: 10 Sterile Dressing Applied?: Yes Ordered Tests: Active Orders 24 hr Category Date Time Status CERVICAL SPINE WO CONTRAST [CT] Stat Exams 05/04/23 03:21 Completed ELBOW (MINIMUM 3 VIEWS) Stat Exams 05/04/23 03:21 Taken FACIAL BONES WO CONTRAST [CT] Stat Exams 05/04/23 03:21 Completed HEAD WITHOUT CONTRAST [CT] Stat Exams 05/04/23 03:21 Completed Medication Summary Discontinued Medications Generic Name Dose Route Start Last Admin Trade Name Jassonq PRN Reason Stop Dose Admin Bacitracin Zinc 0.9 each 05/04/23 06:08 05/04/23 06:11 Bacitracin Packet 1 Each Pckt TP 05/04/23 06:09 0.9 each STAT ONE Administration Bacitracin Zinc Confirm 05/04/23 06:10 Bacitracin Packet 1 Each Pckt Administered 05/04/23 06:11 Dose 1 each .ROUTE .STK-MED ONE Cephalexin HCl 500 mg 05/04/23 06:09 05/04/23 06:11 Cephalexin Mh500 Mg Capsule PO 05/04/23 06:10 500 mg STAT ONE Administration Cephalexin HCl Confirm 05/04/23 06:11 Cephalexin Mh500 Mg Capsule Administered 05/04/23 06:12 Dose 500 mg .ROUTE .STK-MED ONE Lidocaine HCl Confirm 05/04/23 05:43 Lidocaine Hcl 1% 20 Ml Mdv 20 Ml Ml Administered 05/04/23 05:44 Dose 5 ml .ROUTE .STK-MED ONE - Progress Progress: improved Progress Note: 05/04/23 06:22 67-year-old is evaluated in the ER after he fell while dreaming as patient does have a REM sleep disorder. Patient hit the floor and has a laceration of the nose and abrasion left elbow. No loss of consciousness. Nonfocal neuro exam. No active bleeding from the nose. Has a laceration of the nose but no exposed bone. Placed in a c-collar immediately on presentation in the ER. CT head and cervical spine are negative for any acute trauma related findings. C-collar is removed and patient is able to move his neck in all direction without any limitations. CT facial bones showed bilateral nasal fracture. He is given Keflex. Lacerations are repaired. I have offered ENT consultation while in the ER but patient/ does not want to have any now and do not want to be transferred as patient has upcoming [facility] appointment with [facility]. Patient laceration is repaired. X-rays left elbow were negative for acute fracture dislocation reviewed by me, official report is pending. Superficial skin tear which is cleaned and dressed. Patient ambulated in the ER without any limitation. Tetanus is updated. I do not think patient needs any other work-up and is stable for discharge. Discussed signs symptoms of worsening needing return to ER which she seems understanding. Counseled pt/family regarding: diagnosis, need for follow-up, rad results Medical Desision Making - Independent Historian Additional History obtained from: Spouse - Diagnostic Testing Diagnostic test were ordered, analyzed, and reviewed by me: Yes Radiological Interpretation: Interpreted by me, Reviewed by me, Teleradiologist Report - Risk of complications The pt has a mod risk of morbidity or mortality based on: Need for prescription drug management, Need for minor surgical intervention in patient with know risk factors - Departure Departure Disposition: Home Clinical Impression: Nasal bone fracture, Elbow contusion, Fall Condition: Stable Critical Care Time: No Referrals: PETR ROMANO DO [Primary Care Provider] - Follow up with PCP 1 day Instructions: Head Injury in Adults (DC), Contusion (DC), Nose Fracture (DC) Additional Instructions: Take Tylenol as needed for pain. Intermittent ice application. Follow-up with primary care and ENT for reevaluation. Follow head injury instructions and return to ER for any worsening. Prescriptions: Cephalexin Mh 500 mg [Keflex 500 mg] 500 mg PO TID #21 cap
[2023-05-04] MEDS ORDERED: Adacel Vial IM ONE ×2 (06:35→06:41)
--- NOTE | 2023-05-04 08:35 | XRAY ---
Indication: Pain following fall. Comparison: None 3 view left elbow obtained. No bony, articular, or soft tissue abnormalities.
== END 2023-05-04 06:58 | disposition home or self-care (01) ==
LOC: ED 02:56
DX: S02.2XXA Fracture of nasal bones, initial encounter for closed fracture (principal); S50.02XA Contusion of left elbow, initial encounter; S01.21XA Laceration without foreign body of nose, initial encounter; W06.XXXA Fall from bed, initial encounter; Y93.84 Activity, sleeping; Y92.003 Bedroom of unspecified non-institutional (private) residence as the place of occurrence of the external cause; I10 Essential (primary) hypertension; Z79.899 Other long term (current) drug therapy; Z23 Encounter for immunization
CPT/HCPCS: 12013; 70450; 70486; 72125; 73080; 90471; 90715; 99284; A9270-GY

== ENCOUNTER 2024-05-21 12:11 | Emergency (ER) | payer MEDICARE ==
[2024-05-21 12:36] VITALS: TEMP 97.5
--- NOTE | 2024-05-21 12:41 | ERPHSYRPT ---
- History of Present Illness Time Seen by Provider: 05/21/24 12:36 Source: patient, family Physician History: Patient is 68-year-old male with significant past medical history of Parkinson's disease tripped over on something and hit his front part of the head about the left eyebrow on the medial side in the center of the forehead and had around 2.5 cm laceration which did stop bleeding when patient came to the ER. Patient also complaining of some pain on left forearm where he might have got impact while falling. He denies any other injury. He denies any other dizziness chest pain shortness of breath abdominal pain nausea or vomiting. Timing/Duration: today Associated Symptoms: denies symptoms Allergies/Adverse Reactions: codeine Allergy (Verified 05/21/24 12:35) Nausea and Vomiting ropinirole [From Requip] Allergy (Verified 05/21/24 12:35) Nausea and Vomiting selegiline Allergy (Verified 05/21/24 12:35) Nausea suvorexant [From [facility]] Adverse Reaction (Verified 05/21/24 12:35) Home Medications: Carbidopa/Levodopa [Carbidopa-Levo 25-100 Tab] 2 tab PO QID 11/12/20 [History] Cholecalciferol (Vitamin D3) [Vitamin D3] 5,000 unit PO DAILY 11/12/20 [History] Diazepam 5 mg [Valium 5 MG] 10 mg PO HS 11/12/20 [History] Docusate Sodium [Stool Softener] 100 mg PO BID 11/12/20 [History] Ginkgo Biloba [place] Extract [Ginkgo Biloba] 60 mg PO BID 11/12/20 [History] [place]-3S/Dha/Epa/Fish Oil/D3 [Fish Oil Gummies] 1 each PO DAILY 11/12/20 [History] Omeprazole 40 mg PO DAILY 11/12/20 [History] Rasagiline Mesylate 0.5 mg PO DAILY 11/12/20 [History] [place] Fruit/Zinc Picoli [S[place] 450 mg Capsule] 540 mg PO TID 11/12/20 [History] Tyrosine [l-Tyrosine] 500 mg PO DAILY 11/12/20 [History] amantadine HCL [Gocovri] 274 mg PO HS 11/12/20 [History] Cartilage/Collagen/Bor/Hyalur [Joint Health Tablet] 1 each PO DAILY 11/13/20 [History] L.acidoph,Paracasei, B.lactis [Probiotic] 1 each PO DAILY 11/13/20 [History] Turmeric 750 mg PO DAILY 11/13/20 [History] Albuterol Sulfate [Albuterol Sulfate Hfa] 8.5 gm IH DAILY 03/31/22 [History] Istradefylline [Nourianz] 20 mg PO DAILY 03/31/22 [History] Melatonin 5 mg PO HS 03/31/22 [History] oregano oiL [Oil of Oregano] 150 mg PO DAILY 03/31/22 [History] Hx Tetanus, Diphtheria Vaccination/Date Given: Yes Hx Influenza Vaccination/Date Given: Yes Hx Pneumococcal Vaccination/Date Given: Yes - Review of Systems Constitutional: No Fever, No Chills Eyes: No Symptoms Ears, Nose, & Throat: No Symptoms Respiratory: No Cough, No Dyspnea Cardiac: No Chest Pain, No Edema, No Syncope Abdominal/Gastrointestinal: No Abdominal Pain, No Nausea, No Vomiting, No Diarrhea Genitourinary Symptoms: No Dysuria Musculoskeletal: Fall, No Back Pain, No Neck Pain Skin: Other (laceration middle forehead left upper eyebrow), No Rash Neurological: No Dizziness, No Focal Weakness, No Sensory Changes Psychological: No Symptoms Endocrine: No Symptoms All Other Systems: Reviewed and Negative - Past Medical History Pertinent Past Medical History: Yes Neurological History: Other ENT History: No Pertinent History Cardiac History: Hypertension, Other Respiratory History: No Pertinent History Endocrine Medical History: No Pertinent History Musculoskeletal History: Degenerative Disk Disease GI Medical History: GERD History: No Pertinent History Psycho-Social History: No Pertinent History Male Reproductive Disorders: Prostate Problems Other Medical History: Parkinson's Dx 2001, ?possible REM sleep disorder pending sleep study - Past Surgical History Past Surgical History: Yes Neuro Surgical History: No Pertinent History Cardiac: No Pertinent History Respiratory: No Pertinent History Gastrointestinal: No Pertinent History Genitourinary: No Pertinent History Musculoskeletal: Orthopedic Surgery Male Surgical History: Prostate Surgery, Other Other Surgical History: 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, urolift (7 ami remain) - Social History Smoking Status: Former smoker Exposure to second hand smoke: No Drug Use: marijuana Patient Lives Alone: No - Nursing Vital Signs Nursing Vital Signs: Initial Vital Signs Temperature 97.5 F 12/07/24 12:36 Pulse Rate 80 05/21/24 12:36 Respiratory Rate 16 05/21/24 12:36 Blood Pressure 191/92 05/21/24 12:36 O2 Sat by Pulse Oximetry 98 05/21/24 12:36 Pain Scale Pain Intensity 4 - Physical Exam General Appearance: no apparent distress Eye Exam: PERRL/EOMI Ears, Nose, Throat Exam: normal ENT inspection Neck Exam: normal inspection Respiratory Exam: normal breath sounds Cardiovascular Exam: regular rate/rhythm Gastrointestinal/Abdomen Exam: soft Back Exam: normal inspection Extremity Exam: normal inspection, normal range of motion Neurologic Exam: alert, oriented x 3, cooperative, 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 tested Skin Exam: normal color SpO2 Interpretation: normal O2 Delivery: Room Air Procedures - Laceration/Wound Repair Frontal Time of Procedure: 12:40 Wound Location: Left, forehead Wound Length (cm): 2.5 Wound's Depth, Shape: superficial Wound Explored: clean Irrigated: Yes Hibiclens Prep: Yes Wound Repaired With: Steri-strips, Dermabond - Course Nursing assessment & vital signs reviewed: Yes - Radiology Exams Forearm X-ray Interpretation: Interpreted by me, Reviewed by me, No Fracture, Nml Soft Tissues Ordered Tests: Active Orders 24 hr Category Date Time Status Wound Care STAT Care 05/21/24 12:26 Active FOREARM Stat Exams 05/21/24 12:27 Ordered - Progress Progress: improved Counseled pt/family regarding: diagnosis, need for follow-up, rad results Medical Desision Making - Independent Historian Additional History obtained from: Spouse - Diagnostic Testing Diagnostic test were ordered, analyzed, and reviewed by me: Yes Radiological Interpretation: Interpreted by me, Reviewed by me - Risk of complications Minimal Risk: Minimal risk of morbidity - Departure Departure Disposition: Home Clinical Impression: Fall Qualifiers: Encounter type: initial encounter Qualified Code(s): W19.XXXA - Unspecified fall, initial encounter Parkinson disease Qualifiers: Dyskinesia presence: with dyskinesia Fluctuating manifestations: unspecified whether manifestations fluctuate Qualified Code(s): G20.B1 - Parkinson's disease with dyskinesia, without mention of fluctuations Laceration of forehead without complication Qualifiers: Encounter type: initial encounter Qualified Code(s): S01.81XA - Laceration without foreign body of other part of head, initial encounter Forearm injury Qualifiers: Encounter type: initial encounter Laterality: left Qualified Code(s): S59.912A - Unspecified injury of left forearm, initial encounter Condition: Stable Critical Care Time: No Referrals: PETR ROMANO DO [Primary Care Provider] - Follow up/PCP as directed Instructions: Laceration Repair With Glue (DC), Wound Care (DC) Additional Instructions: Discharge/Care Plan HARLEEN ZULUAGA was seen on 05/21/24 in the Emergency Room. The patient was counseled regarding Diagnosis,Lab results, Imaging studies, need for follow up and when to return to the Emergency Room. Prescriptions given: Discharge Note I have spoken with the patient and/or caregivers. I have explained the patient's condition, diagnosis and treatment plan based on the information available to me at this time. I have answered the patient's and/or caregiver's questions and addressed any concerns. The patient and/or caregivers have as good understanding of the patient's diagnosis, condition and treatment plan as can be expected at this point. The vital signs have been stable. The patient's condition is stable and appropriate for discharge from the emergency department. The patient will pursue further outpatient evaluation with the primary care physician or other designated or consulting physician as outlined in the discharge instructions. The patient and/or caregivers are agreeable to this plan of care and follow-up instructions have been explained in detail. The patient and/or caregivers have received these instruction. The patient/and or caregivers are aware that any significant change in condition or worsening of symptoms should prompt an immediate return to this or the closest emergency department or call 911. HARLEEN ZULUAGA was seen on 05/21/24 n the Emergency Room. At that time you were treated for an emergent condition, during your visit Laboratory, Radiology and/or other procedures may have been ordered. It is very important that you follow-up with your Primary Care Physician PETR ROMANO DO within the next 24-48 hours to review your Emergency Room visit and the final results of testing that was ordered. Some test results such as Urine Cultures, Blood Cultures, and other cultures if ordered will not be finalized for 24-48 hours. If you do not have a Primary Care Provider please call the medical records department at [phone] ext [phone] to obtain a copy of your results or you may sign into our patient portal to obtain these results by visiting us @ [email or web address] and completing the following steps: 1. Click on the Patient Portal link 2. Click the Patient Self Enrollment Link to complete the enrollment form and entering your 3. Once the enrollment form is completed you will receive an email with a temporary ID and password at the email address you provided. 4. Next choose a user name and password. Your user name must be at least 4 characters long and your password must be at least 4 characters long. 5. Choose a security question from the list and provide your answer to the question. If you already have signed into the Health Portal you may access your Health Care Information 05/01 by the following steps: 1. Login to our website @ [email or web address] 2. Enter your original user name and password. FAQS The [facility] Health Portal is an online tool that contains your Lab Results, Radiology Reports, Visit History, Discharge Instructions and Health Summary Lab and Radiology Results will not be available for 72 hours on the portal. The Portal is a secure site, passwords are encryted and URLs are re-written so they cannot be copied and pasted. You and authorized family members are the only ones who can access your Portal. Also there is a timeout feature that protects your information if you leave the Portal page open. If you have technical difficulty please use the Contact Us link on the page this will allow you to submit any questions you have regarding the Portal or you may contact the Medical Record Department at [phone] ext [phone].
[2024-05-21 13:23] VITALS: BP 170/70; PULSE 63; RESP 20; O2SAT 97
--- NOTE | 2024-05-21 20:09 | XRAY ---
Indication: Pain following fall. Comparison: None 2 view left forearm obtained. No bony, articular, or soft tissue abnormalities.
== END 2024-05-21 13:20 | disposition home or self-care (01) ==
LOC: ED 12:11
DX: S01.81XA Laceration without foreign body of other part of head, initial encounter (principal); S59.912A Unspecified injury of left forearm, initial encounter; M79.632 Pain in left forearm; W01.10XA Fall on same level from slipping, tripping and stumbling with subsequent striking against unspecified object, initial encounter; G20.A1 Parkinson's disease without dyskinesia, without mention of fluctuations; Z79.899 Other long term (current) drug therapy
CPT/HCPCS: 12001; 73090; 99282; 99283